=== PATIENT | male | born 1965 | race Caucasian/White ===

== ENCOUNTER 2021-12-05 14:33 | Emergency (ER) | payer BC, SELFPAY ==
--- NOTE | ~2021-12-05 | XR_ITS ---
EXAM: XR abdomen/kub 1V DATE: 12/05/2021 17:24 HISTORY: 6mm L UPJ stone . COMPARISON: None available. FINDINGS: Cholecystectomy clips. Clear lung bases. Multiple loops of dilated small bowel in the righ t lower abdomen. No organomegaly. No abnormal abdominal calcification. Regional bones and soft tissue s normal for age. IMPRESSION: Small bowel obstruction versus ileus. Reviewed, dictated and finalized at location K.
--- NOTE | ~2021-12-05 | CT_ITS ---
EXAMINATION: CT abdomen pelvis wo con DATE: 12/05/2021 16:47 INDICATION: leuko, N/V, L flank/LLQ pain, r/o stone/divertic TECHNIQUE: Computed tomography (CT) of the abdomen and pelvis was performed without intravenous contr ast. Automated exposure control and iterative reconstruction technique were employed. The dose-length product was 1730.07 mGy-cm. COMPARISON: 03/12/2018. FINDINGS: Lower thorax: Unremarkable Liver: Normal. Biliary/Gallbladder: Gallbladder is absent. No bile duct dilation. Pancreas: Mild fatty infiltration and atrophy. Spleen: Normal. Adrenals:No mass. Kidneys: Severe left and moderate right perinephric stranding. Multiple bilateral nonobstructing calc alireza, 6 mm obstructing calculus in the left renal pelvis with mild pelvic caliectasis. GI tract: No small or large bowel dilation. Normal appendix. Mesentery/Peritoneum: No ascites, mass, or free air. Retroperitoneum: No mass. Pelvis: Pelvic organs are within normal limits. Soft Tissues: Subcutaneous induration in the left lower abdomen may represent a cutaneous vascular le kd, injection sites, or scar, otherwise soft tissues and body wall are unremarkable. Bones: No acute osseous finding. IMPRESSION: 6 mm left UPJ stone causing moderate obstructive uropathy. Reviewed, dictated and finalized at location K.
[2021-12-05 14:39] VITALS: BP 162/84; PULSE 97; RESP 16; O2SAT 99
--- NOTE | 2021-12-05 14:51 | ED.MALEGU ---
HPI - Male Genitourinary General Chief complaint: Abdominal Pain Stated complaint: flank pain, vomiting Time Seen by Provider: 12/05/21 14:46 Source: patient Mode of arrival: ambulatory Limitations: no limitations History of Present Illness HPI Narrative: Patient is a 56 y/o male who presents to the ED with c/o left lower back/flank pain, radiating around to his left lower abdomen. Patient reports the pain woke him up from his sleep around 4 AM this morning and has been severe and constant since. No alleviating factors. He tried taking Tylenol around 11 a.m. without relief. He also reports having nausea and vomiting since around 5 AM, and diarrhea today. Denies any blood in vomit or stool. Also reports dysuria today, denies any recent fever, chills, hematuria. Patient does have a history of kidney stone around 20 years ago, which required basket retrieval. Related Data Allergies Allergy/AdvReac Type Severity Reaction Status Date / Time codeine Allergy Unknown Verified 04/07/18 08:20 iodine Allergy Unknown Verified 04/07/18 08:20 Review of Systems Review of Systems: CONSTITUTIONAL: Denies fever, chills, or sweats. GASTROINTESTINAL: Reports L lower ABD pain, N/V/D. Denies constipation, rectal bleeding, hematemesis. GENITOURINARY: Reports dysuria. Denies hematuria. MUSCULOSKELETAL: Reports L lower back/flank pain. All systems reviewed & are unremarkable except as noted in HPI and below PMFSH Past Medical History Medical History Diabetes mellitus History of cholecystitis History of COVID-19 History of kidney stones Hypertension Steatohepatitis, non-alcoholic Surgical History Surgical History (Updated 12/05/21 @ 17:04 by Salina Mills PA-C) History of cholecystectomy Family History Family History (Updated 04/07/18 @ 08:22 by DOCTOR UNKNOWN) Other Asthma Family history of malignant neoplasm Hypertension Social History Social History Smoking status: Never smoker Alcohol intake: current Exam Narrative: GENERAL: Well appearing, obese, non-toxic, in no acute distress. HEAD: Normocephalic, atraumatic. NECK: Supple. No adenopathy, no masses. RESPIRATORY: Airway patent, respirations nonlabored. Clear to auscultation bilaterally, no rales, rhonchi, wheezing. CARDIOVASCULAR: Regular rate and rhythm without murmurs, rubs, or gallops. Peripheral pulses 2+ and equal bilaterally. ABDOMINAL: Soft, diffuse tenderness to palpation, worst in epigastric region, LLQ, L lateral abdomen. Nondistended, no hepatosplenomegaly. Normoactive BS. L sided CVA tenderness to percussion. Pain in L CVA region with percussion of R CVA. MUSCULOSKELETAL: Moves all extremities. Strength/ROM intact without gross deformities. No midline thoracic or lumbar spinal tenderness. SKIN: Warm, dry, normal color. No rashes. NEURO: A&O X3. Speech clear. Cranial nerves II-XII grossly intact. Steady gait. No ataxic movements. PSYCHIATRIC: Appropriate mood and affect. Normal interaction. Course Consultations Consultation #1: Discussed case w/ Dr. Lazcano, Urology, advised if patient's pain can be controlled, he can be discharged home and call office on Tuesday for outpatient f/u. I did try to cancel Toradol until speaking with Dr. Lazcano, however, this was unseen and given to patient. Dr. Lazcano advised patient would have to wait until Tuesday if lithotripsy needed. Date: 12/05/21 Time: 17:40 Vital Signs Vital signs: Vital Signs Pulse Rate 97 12/05/21 14:39 Respiratory Rate 16 12/05/21 14:39 Blood Pressure 162/84 H 12/05/21 14:39 Pulse Oximetry 99 12/05/21 14:39 Temperature 97.8 F 12/05/21 18:03 Pulse Rate 98 12/05/21 19:20 Respiratory Rate 16 12/05/21 19:20 Blood Pressure 142/86 H 12/05/21 19:20 Pulse Oximetry 97 12/05/21 19:20 MDM - Male Genitourinary MDM Narrative Medical decision making
[2021-12-05 15:38] LABS: Appearance Urine Clear (Clear); Bilirubin Urine Negative (Negative); Blood Urine Trace-lysed (Negative); Color Urine Yellow (Yellow); Glucose Urine UA 2+ mg/dL (Negative); Ketones Urine 2+ mg/dL (Negative); Leukocyte Esterase Ur Negative LEU/UL (Negative); Nitrate Urine Negative (Negative); Protein Urine 2+ mg/dL (Negative)
[2021-12-05 15:42] LABS: Mucus Urine Rare /lpf; Squamous Epithelial Cell Urine Rare /hpf (Few); WBC Urine 0-3 /hpf
[2021-12-05 15:43] LABS: Add Urine Microscopic? YES
[2021-12-05] MEDS: MORPHINE SULFATE (*CRX) 4 MG/ML INJ IV PUSH (15:58)
[2021-12-05] MEDS: SODIUM CHLORIDE 0.9% IV 1,000 ML 999 ML IV CONT (15:58)
[2021-12-05] MEDS: ONDANSETRON INJ 4 MG/2 ML VIAL IV PUSH (15:59)
[2021-12-05 16:04] LABS: Basophils Percent Auto 0.2 % (0.2-1.2); Eosinophils Percent Auto 0.1 % (0-4.4); Hematocrit 51.5 % (42.0-52.0); Immature Granulocyte Absolute 0.05 K/mm3 (0.00-0.031); Immature Granulocyte Percent A 0.4 % (0-0.5); Lymphocytes Absolute Auto 0.65 K/mm3 (0.9-3.2); Lymphocytes Percent Auto 5.1 % (18.3-44.2); Mean Corpuscular Hemoglobin 28.7 pg (26-34); Mean Corpuscular Volume 86.8 fl (80-100); Mean Platelet Volume 10.2 fl (7.4-10.4); Monocytes Absolute Auto 0.9 K/mm3 (0.1-0.6); Monocytes Percent Auto 6.6 % (2.6-8.5); Neutrophils Absolute Auto 11.2 K/mm3 (1.3-6.7); Neutrophils Percent Auto 87.6 % (45.5-73.1); Platelet Count Result 217 k/mm3 (150-375); Red Blood Count 5.93 M/mm3 (4.6-6.20); Red Cell Distribution Width 13.2 % (11.5-14.5); White Blood Count 12.8 K/mm3 (4.5-10.0)
[2021-12-05 16:06] LABS: Glucose Point of Care 166 mg/dl (65-105)
[2021-12-05 16:16] LABS: Alanine Aminotransferase 40 U/L (6-50); Albumin Level 4.8 g/dL (3.5-5.1); Alkaline Phosphatase 108 U/L (38-126); Anion Gap 13 mmol/L (8-16); Aspartate Amino Transferase 35 U/L (17-59); Bilirubin,Total 1.1 mg/dL (0.2-1.3); Blood Urea Nitrogen 21 mg/dL (9-20); Calcium 9.6 mg/dL (8.4-10.2); Carbon Dioxide 26 mmol/L (22-30); Chloride 99 mmol/L (98-107); Estimated CRCL calculation 72 ml/min; Estimated Glomerular Filt Rate > 60; Glucose 151 mg/dL (65-110); Lipase 19 U/L (23-300); Potassium 4.4 mmol/L (3.4-5.0); Sodium 138 mmol/L (137-145)
[2021-12-05] MEDS: TAMSULOSIN HCL 0.4 MG CAPSULE PO (17:30)
[2021-12-05] MEDS: KETOROLAC 30 MG/ML VIAL (*BKC) IV PUSH (17:30)
[2021-12-05] MEDS: SODIUM CHLORIDE 0.9% IV 500 ML 999 ML IV CONT (17:30)
[2021-12-05 18:03] VITALS: BP 136/84; PULSE 104; RESP 18; TEMP 36.6; O2SAT 99
[2021-12-05] MEDS: HYDROcodone/acetaminophen (*CRX) 5-325 MG TABLET 1 TAB PO (19:01)
[2021-12-05 19:20] VITALS: BP 142/86; PULSE 98; RESP 16; O2SAT 97
== END 2021-12-05 19:54 | disposition home or self-care (01) ==
PROVIDERS: Physician Assistant; Emergency Provider Emergency Medicine
DX: N13.9 Obstructive and reflux uropathy, unspecified (principal); N20.1 Calculus of ureter; E11.9 Type 2 diabetes mellitus without complications; I10 Essential (primary) hypertension; K75.81 Nonalcoholic steatohepatitis (NASH); Z87.442 Personal history of urinary calculi; Z86.16 Personal history of COVID-19
CPT/HCPCS: 36415; 74018; 74176; 80053; 81001; 82948; 83690; 85025; 87086; 87088; 96361; 96374; 96375; 99284; A9270; J1885; J2270; J2405; J7030; J7040

== ENCOUNTER 2021-12-07 10:00 | Observation (INO) | payer BC, SELFPAY ==
--- NOTE | ~2021-12-07 | CT_ITS ---
EXAMINATION: CT abdomen pelvis wo con DATE: 12/07/2021 13:00 INDICATION: Left flank pain. Kidney stones. TECHNIQUE: Computed tomography (CT) of the abdomen and pelvis was performed without intravenous contr ast. Automated exposure control and iterative reconstruction technique were employed. The dose-length product was 1640.15 mGy-cm. COMPARISON: 12/05/2021 FINDINGS: Minimal discoid atelectasis at the bilateral lower lung zones. Couple large calcified left lower lobe nodules along with multiple hepatic and splenic calcific lesions consistent with old granulomatous d isease. Heart size is normal. Atherosclerotic coronary artery calcific location. No pericardial or pl eural effusion. Cholecystectomy clips the gallbladder fossa. Pancreas and bilateral adrenal glands ar e normal. Bilateral nephrolithiasis with 6 stones in the right kidney the largest measuring 10 x 2 mm the lower pole and 11 stones at the left kidney the largest measuring 5 mm at a lower pole calyx. Th ere is a 5-6 mm stone at the left ureteropelvic junction with additional mild left hydronephrosis. Th ere is mild perirenal stranding along the mid left ureter. Right ureter is normal. Bladder is normal. Prostatomegaly measuring 5.0 x 3.3 cm. Bowels including the appendix are normal. No free intraperito alessandra gas or fluid. No pathologically enlarged abdominal or pelvic lymphadenopathy. Mild lumbar dextro curvature with negligible spondylosis. IMPRESSION: 1. Bilateral nephrolithiasis with at least partially obstructing 5-6 mm stone at the left ureteropelv ic junction with mild left hydronephrosis. Reviewed, dictated and finalized at location A. IMPRESSION: 1. Bilateral nephrolithiasis with at least partially obstructing 5-6 mm stone a t the left ureteropelvic junction with mild left hydronephrosis.
--- NOTE | ~2021-12-07 | XR_ITS ---
EXAMINATION: XR retrograde pyelo w/stent LT DATE: 12/08/2021 12:41 INDICATION: Left ureteral stone TECHNIQUE: 16 fluoroscopic images of the abdomen and pelvis were obtained during procedure performed by Dr. Lazcano. Radiologist was not present for the imaging or procedure. The amount of fluoroscopy time used during this procedure was 1.0 minutes. COMPARISON: None. FINDINGS: Images demonstrate cannulation and retrograde contrast injections into the left renal collecting syst em which demonstrates mild hydronephrosis. Previous noted obstructing stone at the ureteropelvic junc tion is not identified. Final images demonstrate placement of a left intrarenal stent which is in exp ected position with loops formed in the bladder and left renal pelvis. IMPRESSION: 1. Placement of a left internal ureteral stent in expected position. 2. Previously noted obstructing left UPJ stone is not identified and may have been extracted. See pro cedure note for further detail. Reviewed, dictated and finalized at location A. IMPRESSION: 1. Placement of a left internal ureteral stent in expected position. 2. Previously noted obstructing left UPJ stone is not identified and may have b een extracted. See procedure note for further detail.
[2021-12-07 10:08] VITALS: BP 155/78; PULSE 107; RESP 22; TEMP 36.4; O2SAT 100
[2021-12-07 10:37] LABS: Basophils Percent Auto 0.4 % (0.2-1.2); Eosinophils Percent Auto 0.1 % (0-4.4); Hematocrit 50.1 % (42.0-52.0); Immature Granulocyte Absolute 0.04 K/mm3 (0.00-0.031); Immature Granulocyte Percent A 0.4 % (0-0.5); Lymphocytes Absolute Auto 0.87 K/mm3 (0.9-3.2); Lymphocytes Percent Auto 7.8 % (18.3-44.2); Mean Corpuscular HGB Conc 31.9 g/dl (32-36); Mean Corpuscular Hemoglobin 28.8 pg (26-34); Mean Corpuscular Volume 90.1 fl (80-100); Mean Platelet Volume 10.3 fl (7.4-10.4); Monocytes Absolute Auto 1.1 K/mm3 (0.1-0.6); Monocytes Percent Auto 9.6 % (2.6-8.5); Neutrophils Absolute Auto 9.1 K/mm3 (1.3-6.7); Neutrophils Percent Auto 81.7 % (45.5-73.1); Platelet Count Result 162 k/mm3 (150-375); Red Blood Count 5.56 M/mm3 (4.6-6.20); Red Cell Distribution Width 13.3 % (11.5-14.5); White Blood Count 11.1 K/mm3 (4.5-10.0)
[2021-12-07 10:48] LABS: Alanine Aminotransferase 27 U/L (6-50); Albumin Level 4.6 g/dL (3.5-5.1); Alkaline Phosphatase 106 U/L (38-126); Anion Gap 14 mmol/L (8-16); Aspartate Amino Transferase 23 U/L (17-59); Bilirubin,Total 1.3 mg/dL (0.2-1.3); Blood Urea Nitrogen 24 mg/dL (9-20); Calcium 8.8 mg/dL (8.4-10.2); Carbon Dioxide 22 mmol/L (22-30); Chloride 99 mmol/L (98-107); Estimated CRCL calculation 70 ml/min; Estimated Glomerular Filt Rate 42; Glucose 223 mg/dL (65-110); Sodium 135 mmol/L (137-145)
[2021-12-07 12:39] LABS: Add Urine Microscopic? YES; Appearance Urine Clear (Clear); Bilirubin Urine Negative (Negative); Blood Urine Negative (Negative); Color Urine Yellow (Yellow); Glucose Urine UA 3+ mg/dL (Negative); Ketones Urine 2+ mg/dL (Negative); Leukocyte Esterase Ur Negative LEU/UL (Negative); Nitrate Urine Negative (Negative); Protein Urine Negative (Negative); Specific Grav Ur 1.015 (1.001-1.035); Urobilinogen Urine 0.2 mg/dL (<2.0)
[2021-12-07 12:48] LABS: Mucus Urine Rare /lpf; RBC Urine 0-2 /hpf (0-2); Squamous Epithelial Cell Urine Rare /hpf (Few); WBC Urine 0-3 /hpf
--- NOTE | 2021-12-07 12:48 | ED.MALEGU ---
HPI - Male Genitourinary General Chief complaint: Urogenital-Male Stated complaint: left renal stone Time Seen by Provider: 12/07/21 12:48 Source: patient Mode of arrival: ambulatory Limitations: no limitations History of Present Illness HPI Narrative: 56 years old white male presents with severe left flank pain started 3 days ago, was diagnosed of 6 mm stone left ureteropelvic junction at that day. Patient was discharged on Flomax, [place] and Zofran, no improvement. Patient could not sleep all night long, frequent vomiting with intractable pain. History of kidney stone, last 1 was 15 years ago. Does not have urologist. He denies any fever, chills. History of diabetes, hypertension, hyperlipidemia patient on baby aspirin once a day, he does not smoke or uses marijuana, drinks occasionally. Related Data Allergies Allergy/AdvReac Type Severity Reaction Status Date / Time codeine Allergy Unknown Verified 12/07/21 12:02 iodine Allergy Unknown Verified 12/07/21 12:02 Review of Systems Review of Systems: All systems reviewed & are unremarkable except as noted in HPI and below PMFSH Past Medical History Medical History Diabetes mellitus History of cholecystitis History of COVID-19 History of kidney stones Hypertension Steatohepatitis, non-alcoholic Surgical History Surgical History History of cholecystectomy Family History Family History Other Asthma Family history of malignant neoplasm Hypertension Social History Social History Smoking status: Never smoker Alcohol intake: current Exam Narrative: General appearance: Well-developed, well-nourished, in pain Skin: Normal color Chest and respiratory: Airway patent, no respiratory distress, no accessory muscle use Heart: Regular rate/rhythm Abdomen: Soft, severe tenderness left flank, no bruises, no swelling or rash no organomegaly, quiet bowel sounds Vascular: Normal peripheral pulses, normal capillary refill. Neurologic: Alert and oriented ?3, S[place] LIFTER is normal as tested, no gross motor deficit Course Course Emergency Course: Patient is back to our emergency room after 3 days with severe left flank pain, repeated CT scan today showed same 6 mm stone at the left UPJ with left hydronephrosis. Patient failed home medications. Vital Signs Vital signs: Vital Signs Temperature 36.4 C 12/07/21 10:08 Pulse Rate 107 H 12/07/21 10:08 Respiratory Rate 22 H 12/07/21 10:08 Blood Pressure 155/78 H 12/07/21 10:08 Pulse Oximetry 100 12/07/21 10:08 Oxygen Delivery Room Air 12/07/21 10:08 Temperature 36.4 C 12/07/21 10:08 Pulse Rate 107 H 12/07/21 10:08 Respiratory Rate 22 H 12/07/21 10:08 Blood Pressure 155/78 H 12/07/21 10:08 Pulse Oximetry 100 12/07/21 10:08 Oxygen Delivery Room Air 12/07/21 10:08 MDM - Male Genitourinary Lab Data Result diagrams: 12/07/21 10:26 12/07/21 10:26 Labs: Lab Results 12/07/21 12/07/21 12/07/21 Range/Units 10:26 10:26 12:32 WBC 11.1 H (4.5-10.0) K/mm3 RBC 5.56 (4.6-6.20) M/mm3 Hgb 16.0 (14.0-18.0) g/dL Hct 50.1 (42.0-52.0) % MCV 90.1 (80-100) fl MCH 28.8 (26-34) pg MCHC 31.9 L (32-36) g/dl RDW 13.3 (11.5-14.5) % Plt Count 162 (150-375) k/mm3 MPV 10.3 (7.4-10.4) fl Immature Gran % (Auto) 0.4 (0-0.5) % Neut % (Auto) 81.7 H (45.5-73.1) % Lymph % (Auto) 7.8 L (18.3-44.2) % [place] % (Auto) 9.6 H (2.6-8.5)
[2021-12-07] MEDS: SODIUM CHLORIDE 0.9% IV 1,000 ML 999 ML IV CONT (12:52)
[2021-12-07] MEDS: HYDROmorphone HCL INJ (*CRX) 1 MG/ML SYR 0.5 MG IV PUSH ×4 (12:53→22:40)
[2021-12-07] MEDS: ONDANSETRON INJ 4 MG/2 ML VIAL IV PUSH ×3 (12:53→22:30)
--- NOTE | 2021-12-07 16:12 | PM.IMHP ---
H&P: HPI History of Present Illness Date/Time: 12/07/21 16:12 Chief Complaint: abdominal pain Narrative: this is a 56-year-old male patient who has a history of having kidney stones approximately 20 years ago which required basket retrieval.. The patient came to the emergency room with severe left flank pain that started 3 days ago. The patient was seen here in the emergency room on 12/05/2021 When he was diagnosed with a 6 mm left UPJ stone causing moderate obstructive uropathy. The patient was ordered Flomax, Zofran and Vicodin. The patient stated that the Vicodin had been working somewhat but today the medicine was no longer working and he was in excruciating pain. His white count is noted to be 11.1. His creatinine is 1.7 and it had been 1.2 on 12/05/2021. BUN 24. Blood sugar is noted to be 223 on the lab draw. The patient is very nauseated today and did not take any of his medication because he felt that he was not able to keep his medication down. The patient does have left CVA tenderness. Urology has been consulted. The patient had been started on IV fluids and given Dilaudid in the emergency room. He was also given Zofran in the emergency room. When I came in to examine him he was asking for something to eat. Today's abdominal pelvis CT was read as bilateral nephrolithiasis with at least partially obstructing 5-6 mm stone at the left UBJ with mild left hydronephrosis. The patient is being admitted to observation status on the date of service of 12/07/2021. Review of Systems Review of Systems: All systems reviewed & are unremarkable except as noted in HPI and below Constitutional: Constitutional: Reports as per HPI and Reports no additional constitutional complaints Eyes: Eyes: Reports as per HPI and Reports no additional eye complaints ENT: Reports system reviewed and no additional complaints, except as documented and Reports Normal hearing present Cardiovascular: Cardiovascular: Reports no additional cardiovascular complaints Respiratory: Respiratory: Reports no additional respiratory complaints and Reports no additional respiratory complaints Gastrointestinal: Gastrointestinal: Reports as per HPI and Reports no additional gastrointestinal complaints Musculoskeletal: Musculoskeletal: Reports no additional musculoskeletal complaints Integumentary/Breasts: Skin/Breast: Reports system reviewed and no additional complaints, except as docu and Reports as per HPI Neurologic: Reports system reviewed and no additional complaints, except as documented, Reports as per HPI and Reports Normal hearing present Psychiatric: Psychiatric: Reports no additional psychiatric complaints and Reports as per HPI Endocrine: Endocrine: Reports no additional endocrine complaints Hematologic/Lymphatic: Hematologic/Lymphatic: Reports no additional hematologic/lymphatic complaints Allergic/Immunologic: Allergic/Immunologic: Reports no additional allergic/immunologic complaints FOR[facility]LY [facility] Past Medical History Medical History (Updated 12/07/21 @ 17:26 by Fdaia Portillo NP) Diabetes mellitus History of cholecystitis History of COVID-19 History of kidney stones History of nephrolithotomy with removal of calculi Hypertension Steatohepatitis, non-alcoholic Surgical History Surgical History History of cholecystectomy Family History Family History Other Asthma Family history of malignant neoplasm Hypertension Social History Social History (Updated 12/07/21 @ 17:18 by Fadia Portillo NP) Social History: 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 He lives with his and his is the durable power benefits consultant for healthcare. He is a lifelong nonsmoker. He rarely drinks alcohol. He denies any marijuana or illicit drugs. Code status full code Smoking status: Never smoker Alc
[2021-12-07 16:32] LABS: SARS-CoV-2 RNA PCR Negative
--- NOTE | 2021-12-07 18:04 | ADMGEN ---
This patient, Eduardo Jaffe, was admitted to Medical Room 254-01. Patient/family oriented to hospital policies and general routines including ID bracelet, bed and alarms, visiting hours, pain management, procedures, bathroom and other care routines, personal items, smoking policy, room service/diet, and visiting hours. Information on how to activate the Rapid Response Team has been discussed. Patient/Family are encouraged to report perceived risks to care and to ask questions if they do not understand what they are told or what they should do.
[2021-12-07 18:12] VITALS: BP 154/78; PULSE 105; RESP 18; TEMP 36.2; O2SAT 98; BMI 43.2
[2021-12-07 18:21] VITALS: BP 154/78; PULSE 105; RESP 18; TEMP 36.2; O2SAT 98; BMI 43.2
--- NOTE | 2021-12-07 18:26 | WPDURCON ---
Assessment and Plan Assessment and plan (1) Kidney stone on left side: Code(s): N20.0 - Calculus of kidney Status: Acute (2) Hydronephrosis of left kidney: Code(s): N13.30 - Unspecified hydronephrosis Status: Acute Assessment and Plan: Patient to be admitted overnight for hydration analgesics. Will plan cystoscopy with left ureteroscopy, stone extraction, possible laser lithotripsy and stent placement on Tuesday Urology Consult Note HPI Date Seen: 12/07/21 Requesting Physician: Rich Joyner MD Primary Care Provider: PHYSICIAN NOT ON STAFF Consult Narrative Narrative: Eduardo Jaffe is a 56 year old male, previously unknown to our practice, who has been in the emergency room twice in the last 3 days with intractable left flank pain, nausea and vomiting. Imaging on both occasions demonstrates a 6 mm left mid ureteral calculus. He denies fevers chills or gross hematuria. Review of Systems Cardiovascular: Cardiovascular: Denies chest pain, Denies lightheadedness, Denies palpitations and Denies dyspnea Respiratory: Respiratory: Denies dyspnea Gastrointestinal: Gastrointestinal: Denies diarrhea, Denies nausea and Denies vomiting Genitourinary: Genitourinary: Denies hematuria and Denies dysuria Endocrine: Endocrine: Denies palpitations PMFSH Past Medical History Medical History (Updated 12/07/21 @ 17:26 by Fadia Portillo NP) Diabetes mellitus History of cholecystitis History of COVID-19 History of kidney stones History of nephrolithotomy with removal of calculi Hypertension Steatohepatitis, non-alcoholic Surgical History Surgical History History of cholecystectomy Family History Family History Other Asthma Family history of malignant neoplasm Hypertension Social History Social History (Updated 12/07/21 @ 17:18 by Fadia Portillo NP) Social History: 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 He lives with his and his is the durable power commercial real estate attorney for healthcare. He is a lifelong nonsmoker. He rarely drinks alcohol. He denies any marijuana or illicit drugs. Code status full code Smoking status: Never smoker Alcohol intake: current Meds Home Medications and Allergies Home Medications Medication Instructions Recorded Confirmed Type hydrocodone 5 mg-acetaminophen 325 1 tablet PO Q6H PRN pain #20 tabs 12/05/21 12/07/21 Rx mg tablet ondansetron 4 mg disintegrating 4 mg PO Q8H PRN nausea and 12/05/21 12/07/21 Rx tablet vomiting #20 tabs tamsulosin 0.4 mg capsule (Flomax) 0.4 mg PO DAILY #7 caps 12/05/21 12/07/21 Rx Jardiance 12.5 mg PO BID 12/07/21 12/07/21 History amlodipine 5 mg tablet (Norvasc) 5 mg PO DAILY 12/07/21 12/07/21 History bimatoprost 0.01 % eye drops 1 drp EACH EYE HS 12/07/21 12/07/21 History (Gonzaloigan) insulin regular hum U-500 conc 500 200 unit subcut QAM 12/07/21 12/07/21 History unit/mL(3 mL) subcut pen (Humulin R U-500 (Conc) Insulin Kwikpen) losartan 100 mg tablet (Cozaar) 100 mg PO DAILY 12/07/21 12/07/21 History metformin 1,000 mg PO BID 12/07/21 12/07/21 History semaglutide 14 mg tablet (Rybelsus) 14 mg PO DAILY 12/07/21 12/07/21 History simvastatin 40 mg tablet 40 mg PO HS 12/07/21 12/07/21 History Allergies Allergy/AdvReac Type Severity Reaction Status Date / Time iodine Allergy Unknown Eye Verified 12/07/21 18:05 swelling Vital Signs Vital Signs - 24 hr 12/07/21 10:08 12/07/21 18:12 12/07/21 18:21 Temperature 97.6 F 97.2 F L 97.2 F L Pulse Rate 107 H 105 H 105 H Respiratory Rate 22 H 18 18 Blood Pressure 155/78 H 154/78 H 154/78 H Pulse Oximetry 100 98 98 Oxygen Delivery Room Air Exam Const: General: no acute distress Resp: Effort & Inspection: normal respiratory effort GI: Inspection: non-diste
[2021-12-07 18:32] LABS: Glucose Point of Care 106 mg/dl (65-105)
[2021-12-07] MEDS: SODIUM CHLORIDE 0.9% IV 1,000 ML 125 ML IV CONT (18:34)
[2021-12-07 20:00] VITALS: BP 184/82; PULSE 108; RESP 20; TEMP 36.4; O2SAT 96
[2021-12-07] MEDS: LATANOPROST 0.005% OP SOLN 2.5 ML BTL 1 DROP EACH EYE (22:43)
[2021-12-07 23:52] VITALS: BP 168/82; PULSE 113; RESP 20; TEMP 36.3; O2SAT 94
[2021-12-08] VITALS (14 sets, daily range): BP systolic 163–192; BP diastolic 68–96; PULSE 95–112; RESP 15–23; TEMP 36–37.1; O2SAT 92–98
[2021-12-08] MEDS: HYDROmorphone HCL INJ (*CRX) 1 MG/ML SYR 0.5 MG IV PUSH (00:10)
[2021-12-08 00:43] LABS: Glucose Point of Care 244 mg/dl (65-105)
[2021-12-08] MEDS: HYDROmorphone HCL INJ (*CRX) 1 MG/ML SYR IV PUSH ×4 (00:55→18:16)
[2021-12-08] MEDS: SODIUM CHLORIDE 0.9% IV 1,000 ML 125 ML IV CONT ×2 (02:34→16:32)
[2021-12-08 06:00] LABS: Basophils Percent Auto 0.3 % (0.2-1.2); Eosinophils Percent Auto 0.1 % (0-4.4); Hematocrit 46.2 % (42.0-52.0); Immature Granulocyte Absolute 0.07 K/mm3 (0.00-0.031); Immature Granulocyte Percent A 0.7 % (0-0.5); Lymphocytes Absolute Auto 1.03 K/mm3 (0.9-3.2); Lymphocytes Percent Auto 9.7 % (18.3-44.2); Mean Corpuscular HGB Conc 32.5 g/dl (32-36); Mean Corpuscular Hemoglobin 29.1 pg (26-34); Mean Corpuscular Volume 89.5 fl (80-100); Mean Platelet Volume 10.3 fl (7.4-10.4); Monocytes Absolute Auto 1.5 K/mm3 (0.1-0.6); Neutrophils Percent Auto 75.2 % (45.5-73.1); Platelet Count Result 142 k/mm3 (150-375); Red Blood Count 5.16 M/mm3 (4.6-6.20); Red Cell Distribution Width 13.2 % (11.5-14.5); White Blood Count 10.6 K/mm3 (4.5-10.0)
[2021-12-08 06:05] LABS: Lactic Acid Reflex 1.1 mmol/L (0.7-2.0)
[2021-12-08 06:13] LABS: Alanine Aminotransferase 22 U/L (6-50); Albumin Level 4.2 g/dL (3.5-5.1); Alkaline Phosphatase 89 U/L (38-126); Anion Gap 13 mmol/L (8-16); Aspartate Amino Transferase 20 U/L (17-59); Bilirubin,Total 1.2 mg/dL (0.2-1.3); Blood Urea Nitrogen 23 mg/dL (9-20); Calcium 8.4 mg/dL (8.4-10.2); Carbon Dioxide 22 mmol/L (22-30); Chloride 100 mmol/L (98-107); Estimated CRCL calculation 74 ml/min; Estimated Glomerular Filt Rate 45; Glucose 220 mg/dL (65-110); Sodium 135 mmol/L (137-145)
[2021-12-08 07:57] LABS: Hemoglobin A1C 6.5 % (<5.7)
[2021-12-08 08:47] LABS: Glucose Point of Care 216 mg/dl (65-105)
[2021-12-08] MEDS: amLODIPine BESYLATE 5 MG TABLET PO (08:51)
--- NOTE | 2021-12-08 09:11 | WPDHPUPDATE1 ---
History and Physical Update Update Date/Time: 12/08/21 09:11 History and Physical has been reviewed, including an updated exam of the patient. There are NO changes in the patient's condition. Risks, benefits, and alternatives have been discussed and questions answered. Patient agrees to proceed with procedure. Proceed with cystoscopy, left left ureteroscopy with stone extraction, possible laser, stent placement
[2021-12-08] MEDS: fentaNYL CITRATE INJ (*CRX) 100 MCG/2 ML VIAL 50 MCG IV PUSH ×2 (09:55→11:03)
--- NOTE | 2021-12-08 10:02 | WPDANESEPPF ---
Anes - Initial Pre Proc Eval Procedure: Operation Date: 12/08/21 10:30 Proposed Procedures p Cystoscopy, Retrograde Pyelogram, Possible Left Stone Extraction, Left Stent Placement; Possible Holmium Laser(Left) - Manuel Lazcano MD Date/Time: 12/08/21 10:02 Surgeon: STACEY Grover Pre Op Diagnosis: Left UPJ Stone/Left Hydronephrosis Patient Data Age: 56 Gender: M Height: 1.88 m Weight: 153 kg Last Vital Signs Temp 36.0 C L 12/08/21 05:08 Pulse 112 H 12/08/21 05:08 Resp 22 H 12/08/21 05:08 BP 169/86 H 12/08/21 05:08 Pulse Ox 96 12/08/21 05:08 O2 Del Method Room Air 12/08/21 08:00 Allergies Allergy/AdvReac Type Severity Reaction Status Date / Time iodine Allergy Unknown Eye Verified 12/08/21 09:41 swelling Home Medications Medication Instructions Recorded Confirmed Type hydrocodone 5 mg-acetaminophen 325 1 tablet PO Q6H PRN pain #20 tabs 12/05/21 12/07/21 Rx mg tablet ondansetron 4 mg disintegrating 4 mg PO Q8H PRN nausea and 12/05/21 12/07/21 Rx tablet vomiting #20 tabs tamsulosin 0.4 mg capsule (Flomax) 0.4 mg PO DAILY #7 caps 12/05/21 12/07/21 Rx Jardiance 12.5 mg PO BID 12/07/21 12/07/21 History amlodipine 5 mg tablet (Norvasc) 5 mg PO DAILY 12/07/21 12/07/21 History bimatoprost 0.01 % eye drops 1 drp EACH EYE HS 12/07/21 12/07/21 History (Lumigan) insulin regular hum U-500 conc 500 200 unit subcut QAM 12/07/21 12/07/21 History unit/mL(3 mL) subcut pen (Humulin R U-500 (Conc) Insulin Kwikpen) losartan 100 mg tablet (Cozaar) 100 mg PO DAILY 12/07/21 12/07/21 History metformin 1,000 mg PO BID 12/07/21 12/07/21 History semaglutide 14 mg tablet (Rybelsus) 14 mg PO DAILY 12/07/21 12/07/21 History simvastatin 40 mg tablet 40 mg PO HS 12/07/21 12/07/21 History Laboratory Tests 12/07/21 12/07/21 12/07/21 10:26 10:26 12:32 WBC 11.1 K/mm3 H K/mm3 (4.5-10.0) RBC 5.56 M/mm3 M/mm3 (4.6-6.20) Hgb 16.0 g/dL g/dL (14.0-18.0) Hct 50.1 % % (42.0-52.0) MCV 90.1 fl fl (80-100) MCH 28.8 pg pg (26-34) MCHC 31.9 g/dl L g/dl (32-36) RDW 13.3 % % (11.5-14.5) Plt Count 162 k/mm3 k/mm3 (150-375) MPV 10.3 fl fl (7.4-10.4) Immature Gran % (Auto) 0.4 % % (0-0.5) Neut % (Auto) 81.7 % H % (45.5-73.1) Lymph % (Auto) 7.8 % L % (18.3-44.2) [place] % (Auto) 9.6 % H % (2.6-8.5) Eos % (Auto) 0.1 % % (0-4.4) Baso % (Auto) 0.4 % % (0.2-1.2) Lymph # (Auto) 0.87 K/mm3 L K/mm3 (0.9-3.2) [place] # (Auto) 1.1 K/mm3 H K/mm3 (0.1-0.6) Eos # (Auto) 0.0 K/mm3 K/mm3 (0-0.3) Baso # (Auto) 0.0 K/mm3 K/mm3 (0.0-0.1) Abs Immat Gran (auto) 0.04 K/mm3 H K/mm3 (0.00-0.031) Absolute Neuts (auto) 9.1 K/mm3 H K/mm3 (1.3-6.7) Absolute Nucleated RBC 0.0 K/mm3 K/mm3 (0.0-0.012) Nucleated RBC % 0.0 % % (0.0-0.2) Sodium 135 mmol/L L mmol/L (137-145) Potassium 5.0 mmol/L mmol/L (3.4-5.0) Chloride 99 mmol/L mmol/L (98-107) Carbon Dioxide 22 mmol/L mmol/L (22-30) Anion Gap 14 mmol/L mmol/L (8-16) BUN 24 mg/dL H mg/dL (9-20) Creatinine 1.70 mg/dL H mg/dL (0.7-1.3) Estim Creat Clear Calc 70 ml/min ml/min Estimated GFR 42 L (59 - ) Glucose 223 mg/dL H mg/dL (65-110) POC Capillary Glucose Hemoglobin A1c Lactic Acid Calcium 8.8 mg/dL mg/dL (8.4-10.2) Magnesium Total Bilirubin 1.3 mg/dL mg/dL (0.2-1.3) AST 23 U/L U/L (17-59) ALT 27 U/L U/L (6-50) Alkaline Phosphatase 106 U/L U/L (38-126) Total Protein 8.0 g/dL g/dL (6.3-8.2) Albumin 4.6 g/dL g/dL (3.5-5.1) TSH (Reflex) U
--- NOTE | 2021-12-08 10:28 | PHAR ---
HOME MEDICATION VERIFIED BY PHARMACY HUMULIN R U-500 INSULIN PEN
[2021-12-08] MEDS: LACTATED RINGERS 1,000 ML 30 ML IV CONT ×2 (11:03→13:07)
--- NOTE | 2021-12-08 12:40 | P.OP_ITS ---
Procedure Note - Detailed Date of Procedure 12/08/21 Pre-op Diagnosis Left UPJ Stone/Left Hydronephrosis-left renal calculi multiple Post-op Diagnosis Same Procedure Performed Cystoscopy, left retrograde pyelogram, left ureteroscopy with holmium laser/dusting of renal calculi and UPJ stone left ureteral stent placement 4.8 Grenadian contour Surgeon Manuel Lazcano MD Anesthesia General Findings Multiple renal calculi as well as a left UPJ stone. 2. Extremely high median bar with inability to pass a rigid cystoscope Description of Procedure Patient is taken to the operative suite correctly identified. Once anesthesia was obtained was placed in dorsal lithotomy position and prepped and draped usual sterile fashion. Twenty-two Grenadian scope was inserted into the urethra. There was some mild bulbar urethral narrowing but allowed passage of the scope. Patient has a very elevated median bar/ridge to get into the prostate. We torqued the scope as much as possible but could still not manipulated over this bladder neck area. At this point we obtained a flexible cystoscope. The bladder was then inspected no tumors noted. The left ureteral orifice was cannulated with a guidewire. A ureteral access sheath was then placed. Mini flexible ureteral scope was inserted. The stone in the UPJ area was visualized. He also had some proximal ureteral tightness. We decided to simply try and fragment and dust the stones into small fragments for him to pass. Using a 273 micron fiber we dusted as many of the stones as we could see. These included the UPJ stone, lower pole calculi as well as some upper pole stones. We then did a pyelogram to confirm placement of the stent. 4.8 Grenadian contour stent was then placed with the proximal end coiled in the renal pelvis and the distal in the bladder. 2% viscous lidocaine was inserted into the urethra patient is taken recovery stable condition. I am going to recommend a CT scan in 7-10 days to see what remains prior to any stent removal. Urine Output 1,200 Drains Yes Packing No Pathology None sent Complications No immediate complications Condition Stable Disposition PACU
[2021-12-08 13:17] LABS: Glucose Point of Care 225 mg/dl (65-105)
[2021-12-08] MEDS: fentaNYL CITRATE INJ (*CRX) 100 MCG/2 ML VIAL 25 MCG IV PUSH ×8 (13:35→14:30)
[2021-12-08 15:22] LABS: Glucose Point of Care 250 mg/dl (65-105)
[2021-12-08] MEDS: INSULIN ASPART (*BKC) 100 UNITS/ML SUB-Q ×2 (15:25→16:47)
--- NOTE | 2021-12-08 15:56 | PM.IMPN ---
Progress Note: A&P Assessment and Plan (1) Kidney stone on left side: Code(s): N20.0 - Calculus of kidney Status: Acute Assessment and Plan: - OR intervention today was performed for bilateral nephrolithiasis with at least partially obstructing 5-6 mm stone on the left UVJ with mild left hydronephrosis. - continue IV fluids - continue with analgesics - continue with antiemetics (2) Acute kidney failure: Code(s): N17.9 - Acute kidney failure, unspecified Status: Acute Assessment and Plan: - Suspicious that the etiology is secondary to the obstructing Nephrolithasis that the pt. had. - Continue IVF - Follow and trend labs. (3) Hydronephrosis of left kidney: Code(s): N13.30 - Unspecified hydronephrosis Status: Acute Assessment and Plan: - See above POC. (4) Hypertension: Code(s): I10 - Essential (primary) hypertension Status: Acute Assessment and Plan: - continue with home medication if patient is not nauseated - p.r.n. hydralazine with parameters (5) Diabetes mellitus: Code(s): E11.9 - Type 2 diabetes mellitus without complications Status: Acute Assessment and Plan: - Accu-Cheks AC and HS with sliding scale insulin check A1c if 1 has not been completed in the last 3 months - continue with home medication - Initiate Hypoglycemia protocol. Time Spent With Patient Time with patient: 15 - 25 minutes Subjective Date/time seen: 12/08/21 15:30 This pt. was evaluated at the bedside today after OR intervention with Dr. Lazcano. The pt tells me of him developing low back pain on Tuesday, now three days ago, that has only worsened over the past few days. He was found to have Bilateral nephrolithiasis yesterday on CT scan and there was a stone on the left at the UPJ that is partially obstructing and is 5-6 mm. He went for a Cystoscopy today with left retrograde pyelogram, left ureteroscopy with laser/dusting of renal calculi and UPJ stone with stent placement. Upon return from OR he has continued pain in his back, and is urinating without difficulty. Per the operative note of Dr. Lazcano, he is going to recommend a CT scan in 7-10 days to see what remains prior to any stent removal. At the time of my exam, he has no c/o CP, Dyspnea, N/V/D. He does have flank pain on the left side but no further nausea/vomiting. Review of Systems Review of Systems: All systems reviewed & are unremarkable except as noted in HPI and below Exam Const: General: uncomfortable Other: Morbidly obese male patient. HENMT: General nose exam: Normal nares present and no epistaxis Mouth: Yes moist mucous membranes Eyes: General: appearance normal, both eyes and all related structures Sclera: sclerae normal Pupils: Equal, round and reactive pupils present EOM: EOMs intact bilaterally Neck: Neck: supple and no JVD Resp: Effort & Inspection: normal respiratory effort Auscultation: clear to auscultation bilaterally Cardio: Rate: regular rate Rhythm: regular rhythm Heart sounds: no gallops, no murmurs and no rubs GI: Inspection: non-distended GI Palp: Yes Soft to palpation and Yes Tenderness to palpation present (GI) (Left flank) Auscultation: normal bowel sounds : Other: Voiding freely. Skin: General skin exam: normal color and no rashes or lesions noted Wounds: no wounds Neuro: General: gait normal Speech: normal speech Motor exam (neuro): 5/5 motor strength present throughout and Normal motor muscle tone present throughout Sensory Exam: normal sensation Extrem: General: normal to inspection, no edema and no pedal edema Other: Pt. freely and equally MAEW. Psych: Mental Status: mental status grossly normal Affect: normal affect Objective Data Vital Signs Vital Signs: Vital Signs - 24 hr 12/07/21 18:40 12/07/21 18:12 12/07/21 20:00 Temperature 97.2 F L 97.5 F L Pulse Rate 105 H 108 H Respiratory Rate 18 20 Blood Pres
[2021-12-08 16:38] LABS: Glucose Point of Care 241 mg/dl (65-105)
[2021-12-08] MEDS: LATANOPROST 0.005% OP SOLN 2.5 ML BTL 1 DROP EACH EYE (22:03)
[2021-12-08] MEDS: SIMVASTATIN 20 MG TABLET 40 MG PO (22:03)
[2021-12-08] MEDS: HYDROcodone/acetaminophen (*CRX) 5-325 MG TABLET 1 TAB PO (22:07)
[2021-12-08 22:14] LABS: Glucose Point of Care 257 mg/dl (65-105)
[2021-12-09] MEDS: SODIUM CHLORIDE 0.9% IV 1,000 ML 125 ML IV CONT (00:25)
[2021-12-09 05:37] LABS: Basophils Percent Auto 0.4 % (0.2-1.2); Eosinophils Absolute Auto 0.1 K/mm3 (0-0.3); Eosinophils Percent Auto 0.6 % (0-4.4); Hematocrit 45.1 % (42.0-52.0); Hemoglobin 14.7 g/dL (14.0-18.0); Immature Granulocyte Absolute 0.06 K/mm3 (0.00-0.031); Immature Granulocyte Percent A 0.7 % (0-0.5); Lymphocytes Absolute Auto 1.15 K/mm3 (0.9-3.2); Lymphocytes Percent Auto 13.5 % (18.3-44.2); Mean Corpuscular HGB Conc 32.6 g/dl (32-36); Mean Corpuscular Hemoglobin 29.2 pg (26-34); Mean Corpuscular Volume 89.7 fl (80-100); Mean Platelet Volume 10.6 fl (7.4-10.4); Monocytes Absolute Auto 1.2 K/mm3 (0.1-0.6); Monocytes Percent Auto 14.1 % (2.6-8.5); Neutrophils Percent Auto 70.7 % (45.5-73.1); Platelet Count Result 142 k/mm3 (150-375); Red Blood Count 5.03 M/mm3 (4.6-6.20); Red Cell Distribution Width 13.2 % (11.5-14.5); White Blood Count 8.5 K/mm3 (4.5-10.0)
[2021-12-09] MEDS: HYDROcodone/acetaminophen (*CRX) 5-325 MG TABLET 1 TAB PO (05:53)
[2021-12-09 06:07] LABS: Alanine Aminotransferase 20 U/L (6-50); Alkaline Phosphatase 91 U/L (38-126); Anion Gap 13 mmol/L (8-16); Aspartate Amino Transferase 18 U/L (17-59); Blood Urea Nitrogen 22 mg/dL (9-20); Calcium 8.6 mg/dL (8.4-10.2); Carbon Dioxide 23 mmol/L (22-30); Chloride 101 mmol/L (98-107); Estimated CRCL calculation 115 ml/min; Estimated Glomerular Filt Rate > 60; Glucose 193 mg/dL (65-110); Magnesium 2.1 mg/dL (1.6-2.3); Potassium 4.7 mmol/L (3.4-5.0); Sodium 137 mmol/L (137-145)
[2021-12-09 07:46] LABS: Glucose Point of Care 189 mg/dl (65-105)
[2021-12-09 08:10] VITALS: BP 158/82
[2021-12-09] MEDS: TAMSULOSIN HCL 0.4 MG CAPSULE PO (08:25)
[2021-12-09] MEDS: amLODIPine BESYLATE 5 MG TABLET PO (08:25)
--- NOTE | 2021-12-09 10:53 | PM.DS ---
DS: Admitting Diagnosis Discharge Date 12/09/2021 Admitting Diagnosis Left ureterolithiasis, acute kidney failure, hydronephrosis, HTN, DM DS: Discharge Diagnosis Discharge Diagnosis (1) Kidney stone on left side: Code(s): N20.0 - Calculus of kidney Status: Acute Assessment and Plan: - OR intervention today was performed for bilateral nephrolithiasis with at least partially obstructing 5-6 mm stone on the left UVJ with mild left hydronephrosis. - Pt. has improved with his pain and has good control. He is stable and would like to be discharged home. I spoke with Dr. Lazcano who was agreeable to the plan of discharge and an order for Cipro 500 mg b.i.d. 3 days is ordered in Dr. Lazcano office will call patient to set up CT scan within 1 week. (2) Acute kidney failure: Code(s): N17.9 - Acute kidney failure, unspecified Status: Resolved Assessment and Plan: - Resolved (3) Hydronephrosis of left kidney: Code(s): N13.30 - Unspecified hydronephrosis Status: Resolved Assessment and Plan: - resolved (4) Hypertension: Code(s): I10 - Essential (primary) hypertension Status: Chronic Assessment and Plan: - continue with home medication if patient is not nauseated - p.r.n. hydralazine with parameters (5) Diabetes mellitus: Code(s): E11.9 - Type 2 diabetes mellitus without complications Status: Chronic Assessment and Plan: - continue home diabetic regimen DS: Summary Hospital Course Reason for hospitalization: Abdominal Pain Hospital Course: this very pleasant 56-year-old male patient with significant past medical history of diabetes mellitus type 2, cholecystitis, nephrolithiasis, nephrolithotomy with removal of calculi, hypertension and NAFLD presented to the emergency room on 12/07/2021 with complaints of having worsening of abdominal pain from his kidney stone that was diagnosed 2 days prior and this time accompanied by acute nausea and vomiting. Workup was started in the emergency room and was found that patient had acute kidney injury that was suspicion to be secondary to his presenting complaint of Ureterolithiasis with obstruction. He was admitted to the hospital and Urology was consulted. Yesterday Dr. Lazcano took the patient to the operating room and performed a cystoscopy with a left retrograde pyelogram and a left ureteroscopy with laser and dusting of the renal calculi and UPJ stone left ureteral stent placement. Patient has had a favorable course post OR intervention. This morning he is without pain or distress, he is up moving around the room without any difficulty or complaint and is ready for discharge. After consulting with Dr. Lazcano patient is prescribed a 3 day course of Cipro 500 mg q.12 hours, ( Bactrim unable to be prescribed based on patient's ACEI/ARB use as well as allergy of periorbital edema with iodine.) Dr. Lazcano office will reach out to patient to schedule a CT scan in approximately 1 week. Patient is agreeable to this plan of care and he is advised to return to the emergency room immediately should he have any new or worsening symptoms. Status at Discharge Functional status at discharge: independent ambulation Overall status at discharge: patient is back to baseline Time Spent with Patient Time attestation: Total time spent providing and/or coordinating discharge services: Time spent: Greater than 30 minutes Specific discharge activities: Plan of care, discharge instructions Exam Const: General: comfortable Other: morbid obesity HENMT: Mouth: Yes moist mucous membranes Eyes: Sclera: sclerae normal Pupils: Equal, round and reactive pupils present EOM: EOMs intact bilaterally Neck: Neck: supple and no JVD Lymphatic: lymphadenopathy not noted Resp: Effort & Inspection: normal respiratory effort Auscultation: clear to auscultation bilaterally Cardio: Rate: regular rate Rhythm: re
--- NOTE | 2021-12-09 12:50 | WPDANESPN ---
Anes - Prog Note Post-Op Date/Time: 12/09/21 12:50 Cardiovascular status: normal Respiratory status: normal Airway patency: baseline Mental status: baseline Post-Op hydration status: normal Vital Signs: Last Vital Signs Temp 98.7 F 12/08/21 23:53 Pulse 112 H 12/08/21 23:53 Resp 20 12/08/21 23:53 BP 158/82 H 12/09/21 08:10 Pulse Ox 94 12/08/21 23:53 O2 Del Method Room Air 12/09/21 08:15 O2 Flow Rate 2 12/08/21 14:45 Pain Score (VAS): 05/18 I/O: Intake & Output 12/08/21 12/09/21 12/09/21 23:59 07:59 15:59 Intake Total 751 1000 240 Output Total 1000 1800 Balance -249 -800 240 Laboratory Tests 12/09/21 04:59 12/09/21 04:59 12/08/21 12/08/21 12/08/21 13:14 15:20 16:34 WBC RBC Hgb Hct MCV MCH MCHC RDW Plt Count MPV Immature Gran % (Auto) Neut % (Auto) Lymph % (Auto) [place] % (Auto) Eos % (Auto) Baso % (Auto) Lymph # (Auto) [place] # (Auto) Eos # (Auto) Baso # (Auto) Abs Immat Gran (auto) Absolute Neuts (auto) Absolute Nucleated RBC Nucleated RBC % Sodium Potassium Chloride Carbon Dioxide Anion Gap BUN Creatinine Estim Creat Clear Calc Estimated GFR Glucose POC Capillary Glucose 225 H 250 H 241 H Calcium Magnesium Total Bilirubin AST ALT Alkaline Phosphatase Total Protein Albumin 12/08/21 12/09/21 12/09/21 22:01 04:59 04:59 WBC 8.5 RBC 5.03 Hgb 14.7 Hct 45.1 MCV 89.7 MCH 29.2 MCHC 32.6 RDW 13.2 Plt Count 142 L MPV 10.6 H Immature Gran % (Auto) 0.7 H Neut % (Auto) 70.7 Lymph % (Auto) 13.5 L [place] % (Auto) 14.1 H Eos % (Auto) 0.6 Baso % (Auto) 0.4 Lymph # (Auto) 1.15 [place] # (Auto) 1.2 H Eos # (Auto) 0.1 Baso # (Auto) 0.0 Abs Immat Gran (auto) 0.06 H Absolute Neuts (auto) 6.0 Absolute Nucleated RBC 0.0 Nucleated RBC % 0.0 Sodium 137 Potassium 4.7 Chloride 101 Carbon Dioxide 23 Anion Gap 13 BUN 22 H Creatinine 1.00 Estim Creat Clear Calc 115 Estimated GFR > 60 Glucose 193 H POC Capillary Glucose 257 H Calcium 8.6 Magnesium 2.1 Total Bilirubin 1.0 AST 18 ALT 20 Alkaline Phosphatase 91 Total Protein 7.0 Albumin 4.0 12/09/21 07:41 WBC RBC Hgb Hct MCV MCH MCHC RDW Plt Count MPV Immature Gran % (Auto) Neut % (Auto) Lymph % (Auto) [place] % (Auto) Eos % (Auto) Baso % (Auto) Lymph # (Auto) [place] # (Auto) Eos # (Auto) Baso # (Auto) Abs Immat Gran (auto) Absolute Neuts (auto) Absolute Nucleated RBC Nucleated RBC % Sodium Potassium Chloride Carbon Dioxide Anion Gap BUN Creatinine Estim Creat Clear Calc Estimated GFR Glucose POC Capillary Glucose 189 H Calcium Magnesium Total Bilirubin AST ALT Alkaline Phosphatase Total Protein Albumin Post-procedural complaints: none Patient Feedback: Patient satisfied with anesthetic care.
== END 2021-12-09 12:28 | disposition home or self-care (01) ==
LOC: ANHED 13:00 → ANH2MED 17:11
PROVIDERS: Emergency Medicine; Nurse Practitioner; Urology; Admitting Provider Internal Medicine; Emergency Provider Emergency Medicine; Visit Provider Nurse Practitioner Adult Health
PROC: (CPT 52352; principal; 2021-12-08 10:30)
DX: N13.2 Hydronephrosis with renal and ureteral calculous obstruction (principal); N17.9 Acute kidney failure, unspecified; I10 Essential (primary) hypertension; E11.9 Type 2 diabetes mellitus without complications; K76.0 Fatty (change of) liver, not elsewhere classified; Z90.49 Acquired absence of other specified parts of digestive tract; Z79.891 Long term (current) use of opiate analgesic; Z79.84 Long term (current) use of oral hypoglycemic drugs; Z79.4 Long term (current) use of insulin; Z79.899 Other long term (current) drug therapy; Z86.16 Personal history of COVID-19; Z20.822 Contact with and (suspected) exposure to COVID-19; E66.01 Morbid (severe) obesity due to excess calories; Z68.41 Body mass index [BMI] 40.0-44.9, adult
CPT/HCPCS: 52356; 36415; 74176; 74420; 80053; 81001; 82948; 83036; 83605; 83735; 84443; 85025; 87086; 96361; 96374; 96375; 96376; 99285; A9270; C1769; C1894; C2617; C9803; G0378; J1100; J1170; J1200; J1815; J2250; J2405; J2704; J3010; J7030; J7120; U0003; U0005

== ENCOUNTER 2021-12-18 15:22 | Inpatient (IN) | payer BC, SELFPAY ==
[2021-12-18] VITALS (10 sets, daily range): BP systolic 117–140; BP diastolic 57–81; PULSE 85–121; RESP 16–27; TEMP 36.5–37.9; O2SAT 92–96; BMI 42.3
--- NOTE | ~2021-12-18 | CT_ITS ---
EXAMINATION: CT abdomen pelvis wo con DATE: 12/22/2021 10:42 INDICATION: Right ureterovesicular junction stone TECHNIQUE: Computed tomography (CT) of the abdomen and pelvis was performed without intravenous contr ast. The dose-length product (DLP) was 1609.13 mGy-cm. Automated exposure control and iterative recon struction technique were employed. COMPARISON: 12/18/2021 FINDINGS: Minimal dependent atelectasis is present in the lung bases. The heart size is normal. Calci fied atherosclerosis is noted. There is nodularity of the liver surface, consistent with cirrhosis. P unctate calcifications of the liver and spleen are consistent with old granulomatous disease. The gal lbladder is surgically absent. The pancreas and adrenal glands are normal. A left internal ureteral s tent is in expected position. There are nonobstructing stones of the kidneys measuring up to 3 mm on the right and 9 mm on the left. The previously described right ureterovesicular junction stone is now seen in the dependent portion of the urinary bladder. There is mild retroperitoneal fat stranding wh ich may reflect urinary tract infection. No pathologically enlarged abdominal or pelvic lymph nodes a re identified. There is no free intraperitoneal gas or evidence of bowel obstruction. The appendix is normal. There is mild lumbar spondylosis. IMPRESSION: 1. 3 mm stone in the dependent portion of the urinary bladder, displaced from the ureterovesicular ju nction since the comparison CT. 2. Bilateral nonobstructing nephrolithiasis. Reviewed, dictated and finalized at location A. IMPRESSION: 1. 3 mm stone in the dependent portion of the urinary bladder, displaced from t he ureterovesicular junction since the comparison CT. 2. Bilateral nonobstructing nephrolithiasis.
--- NOTE | ~2021-12-18 | US_ITS ---
US abdomen limited INDICATION: Abnormal liver function tests. PROCEDURE: Realtime right upper abdominal ultrasound. COMPARISON: No prior studies for comparison. FINDINGS: The pancreas is normal without focal mass or pancreatic ductal dilation. Liver echotexture is heterogeneous. There is nodularity of the liver surface, consistent with cirrhosis. There is nor mal directional flow in the portal vein. Gallbladder is surgically absent. Common bile duct measures 6 mm. No sonographic Rivero's sign. IMPRESSION: 1: Cirrhosis of the liver. Reviewed, dictated and finalized at location B. IMPRESSION: 1: Cirrhosis of the liver.
--- NOTE | ~2021-12-18 | CT_ITS ---
EXAMINATION: CT abdomen pelvis wo con DATE: 12/18/2021 16:20 INDICATION: Flank pain TECHNIQUE: Computed tomography (CT) of the abdomen and pelvis was performed without intravenous contr ast. The dose-length product was 1369.32 mGy-cm. Automated exposure control and iterative reconstruct ion technique were employed. COMPARISON: CT dated 12/07/2021. FINDINGS: Lung bases are unremarkable. Heart size normal. There are calcified granulomas in the lungs , liver and spleen. The pancreas and adrenal glands are unremarkable. There are multiple bilateral nonobstructing renal s tones. There is a left internal ureteral stent. There is moderate left perinephric stranding and jerome ureteral edema. Cannot exclude ascending urinary tract infection. There is a small 3 mm stone at the right UVJ which may represent recently passed bladder stone or UVJ stone. Mild right hydronephrosis. There are accessory splenules. No free air or free fluid. There are cholecystectomy clips. Nonobstructive bowel gas pattern. There is subcutaneous stranding of the left anterior abdominal wall, nonspecific. There is osteoarthritis of the hips. No acute osseous abnormality. IMPRESSION: 1. Moderate left perinephric and periureteral edema. Cannot exclude ascending urinary tract infection . Left internal ureteral stent in expected position. 2: Calcification at the right UVJ measuring 3 mm which may represent a recently passed stone or UVJ s tone. 3: Nonobstructing bilateral nephrolithiasis. Reviewed, dictated and finalized at location A. IMPRESSION: 1. Moderate left perinephric and periureteral edema. Cannot exclude ascending u rinary tract infection. Left internal ureteral stent in expected position. 2: Calcification at the right UVJ measuring 3 mm which may represent a recently passed stone or UVJ stone. 3: Nonobstructing bilateral nephrolithiasis.
--- NOTE | ~2021-12-18 | US_ITS ---
EXAMINATION: US renal BI DATE: 12/19/2021 08:08 INDICATION: Urinary retention, acute kidney injury TECHNIQUE: Multiple grayscale and Doppler ultrasound images of the kidneys were obtained. COMPARISON: CT from yesterday FINDINGS: The right kidney measures 13.8 x 7.2 x 7.2 cm. The left kidney measures 14.9 x 5.4 x 7.7 cm . The kidneys demonstrate normal parenchymal echogenicity. A 5 mm stone is noted in the lower pole of the right kidney. Stones of the left kidney measure up to 11 mm. There is no hydronephrosis. The braeden dder is normal. IMPRESSION: 1. Bilateral nephrolithiasis without hydronephrosis. Reviewed, dictated and finalized at location A.
--- NOTE | 2021-12-18 15:32 | ED.MALEGU ---
HPI - Male Genitourinary General Chief complaint: Urogenital-Male Stated complaint: L FLANK AFTER KIDNEY STONES/STENTED AND BLASTED Time Seen by Provider: 12/18/21 15:29 History of Present Illness HPI Narrative: This is a 56-year-old male with history of nephrolithiasis, status post lithotripsy last week, who returns emergency department complaining of severe abdominal pain nausea and vomiting. He states his pain began yesterday, is described as sharp, in the left flank, radiating to the pelvis, similar to pain with previous stones. He also notes chills, with vomiting without blood. He denies recent trauma, complains of persistent burning with urination but denies bleeding. He states he finished pain medications and Flomax previously prescribed. Related Data Home Medications Medication Instructions Recorded Confirmed Jardiance 12.5 mg PO BID 12/07/21 12/07/21 amlodipine 5 mg tablet (Norvasc) 5 mg PO DAILY 12/07/21 12/07/21 bimatoprost 0.01 % eye drops 1 drp EACH EYE HS 12/07/21 12/07/21 (Lumigan) insulin regular hum U-500 conc 500 200 unit subcut QAM 12/07/21 12/07/21 unit/mL(3 mL) subcut pen (Humulin R U-500 (Conc) Insulin Kwikpen) losartan 100 mg tablet (Cozaar) 100 mg PO DAILY 12/07/21 12/07/21 metformin 1,000 mg PO BID 12/07/21 12/07/21 semaglutide 14 mg tablet (Rybelsus) 14 mg PO DAILY 12/07/21 12/07/21 simvastatin 40 mg tablet 40 mg PO HS 12/07/21 12/07/21 Allergies Allergy/AdvReac Type Severity Reaction Status Date / Time iodine Allergy Unknown Eye Verified 12/18/21 15:28 swelling Review of Systems Review of Systems: CONSTITUTIONAL: +fever, chills, Denies sweats. EYES: Denies visual changes, redness, or discharge. ENT: Denies rhinorrhea, congestion, sore throat, or otalgia. CARDIOVASCULAR: Denies chest pain, palpitations, or edema. RESPIRATORY: Denies cough or dyspnea. GASTROINTESTINAL: +abdominal pain, nausea, vomiting Denies diarrhea. GENITOURINARY: dysuria Denies hematuria. SKIN: Denies rash or itching. MUSCULOSKELETAL: Denies back pain, joint pain, or myalgia. NEUROLOGIC: Denies headache, numbness, dizziness, or weakness. PSYCHIATRIC: Denies anxiety or depression. [facility] Past Medical History Medical History (Updated 12/18/21 @ 17:24 by Susy Milligan PA-C) Hypertension Kidney stones Steatohepatitis, non-alcoholic Type 2 diabetes mellitus Surgical History Surgical History (Updated 12/18/21 @ 17:24 by Susy Milligan PA-C) History of cholecystectomy History of nephrolithotomy with removal of calculi Family History Family History Other Asthma Family history of malignant neoplasm Hypertension Social History Social History (Updated 12/18/21 @ 17:26 by Susy Milligan PA-C) Social History: Surrogate medical decision maker: Gloria Chavezshellyricardo, spouse. Code status: Full code. Smoking status: Never smoker Alcohol intake: never Substance use: never Substance use type: does not use Additional living arrangements comments: Lives with in [place]. Additional occupation/education comments: [employer]. Spiritual care concerns: No Exam Narrative: GENERAL: Well-nourished, in moderate distress due to pain HEAD: Normocephalic, atraumatic. EYES: PERRLA and EOMI. ENT: Nares clear, no rhinorrhea or epistaxis. Mucous membranes moist. Oropharynx without tonsillar hypertrophy exudate or other lesions. NECK: Supple. No adenopathy or masses. No carotid bruits or JVD CHEST: Clear to auscultation. No respiratory distress. No wheezes rales or rhonchi HEART: Tachycardic with regular rhythm. No murmur heard. Normal peripheral pulses. ABDOMEN: Soft, mildly distended, diffusely tender to palpation, greatest in the left upper quadrant and left flank pain, active bowel sounds. EXTREMITIES: Normal range of motion. No edema. SKIN: Warm, dry, no rash. NEURO: No focal deficits. Alert and oriented x3. PSYCH
[2021-12-18] MEDS: MORPHINE SULFATE (*CRX) 4 MG/ML INJ 6 MG IV PUSH (16:01)
[2021-12-18] MEDS: SODIUM CHLORIDE 0.9% IV 1,000 ML 999 ML IV CONT ×2 (16:01→21:56)
[2021-12-18 16:31] LABS: Alanine Aminotransferase 59 U/L (6-50); Albumin Level 4.3 g/dL (3.5-5.1); Alkaline Phosphatase 144 U/L (38-126); Anion Gap 13 mmol/L (8-16); Aspartate Amino Transferase 73 U/L (17-59); Bilirubin,Total 1.2 mg/dL (0.2-1.3); Blood Urea Nitrogen 29 mg/dL (9-20); Calcium 9.5 mg/dL (8.4-10.2); Carbon Dioxide 22 mmol/L (22-30); Chloride 96 mmol/L (98-107); Estimated CRCL calculation 81 ml/min; Estimated Glomerular Filt Rate 53; Glucose 294 mg/dL (65-110); Lipase 27 U/L (23-300); Potassium 4.2 mmol/L (3.4-5.0); Sodium 131 mmol/L (137-145)
[2021-12-18] MEDS: PROCHLORPERAZINE EDISYLATE 10 MG/2 ML VIAL IV PUSH (16:35)
[2021-12-18 16:55] LABS: Basophils Absolute Auto 0.1 K/mm3 (0.0-0.1); Basophils Percent Auto 0.3 % (0.2-1.2); Hematocrit 46.5 % (42.0-52.0); Hemoglobin 15.3 g/dL (14.0-18.0); Immature Granulocyte Absolute 0.22 K/mm3 (0.00-0.031); Lymphocytes Absolute Auto 0.51 K/mm3 (0.9-3.2); Lymphocytes Percent Auto 2.3 % (18.3-44.2); Mean Corpuscular HGB Conc 32.9 g/dl (32-36); Mean Corpuscular Hemoglobin 28.9 pg (26-34); Mean Corpuscular Volume 87.7 fl (80-100); Mean Platelet Volume 10.2 fl (7.4-10.4); Monocytes Percent Auto 8.7 % (2.6-8.5); Neutrophils Absolute Auto 19.7 K/mm3 (1.3-6.7); Neutrophils Percent Auto 87.7 % (45.5-73.1); Platelet Count Result 166 k/mm3 (150-375); Red Cell Distribution Width 13.4 % (11.5-14.5); White Blood Count 22.5 K/mm3 (4.5-10.0)
[2021-12-18 17:06] LABS: Lactic Acid Reflex 2.3 mmol/L (0.7-2.0)
--- NOTE | 2021-12-18 17:30 | PM.IMHP ---
H&P: HPI History of Present Illness Date/Time: 12/18/21 17:30 Chief Complaint: Abdominal pain. Narrative: This is a very pleasant 56-year-old male with history of kidney stones, insulin-dependent diabetes, hypertension, and dyslipidemia who presented to the emergency department via EMS from home for evaluation of abdominal pain. He was recently hospitalized between 12/07 and 12/09/2021 at which time he he was admitted with a left mid ureteral calculus with hydronephrosis after presenting with abdominal pain. He had a cystoscopy with left retrograde pyelogram and left ureteroscopy with holmium laser of renal calculi and UPJ stone with left ureteral stent placement per Dr. Lazcano on December 08. He was discharged were a prescription for ciprofloxacin which he did complete. He has now been home for a little over a week and he return to work on Tuesday. He continues to have some mild left-sided discomfort and yesterday he came home a bit early as he thought that perhaps he over did it at work as he had increasing pain in his left flank. Last night however the pain intensified and was associated with nausea and vomiting. He has also been experiencing dysuria and reports sweats and subjective fever as well. This afternoon he took a nap and not long prior to arrival he yelled out for his and she came into the room and found him slumped on the floor, leaning against the bed. He had urinated on himself and he seemed too weak to get himself up and thus emergency services were called. He does not recall falling and he cannot say with certainty that he did not lose consciousness. CT scan done on arrival to the ER showed moderate left perinephric and periureteral edema suspicious for ascending urinary tract infection in the setting [place] [id number]. Left ureteral stent was noted to be in the expected position. ED physician discussed the case with the on-call urologist who recommends admitting the patient for IV antibiotics. At the time my evaluation the patient is finally resting after receiving IV morphine. He continues to have pain in the left flank which radiates somewhat into the groin. He is no longer feeling nauseated. On exam, his bladder was distended and he was straight catheterized x1 which yielded nearly 700 mL of urine. Review of Systems Review of Systems: Twelve systems were reviewed. No cold or flu symptoms. No chest pain or shortness of breath. Glucose has been running a bit high recently. No blurry vision, polydipsia, or polyuria. Except as documented, all other systems were reviewed and are negative. [facility] Past Medical History Medical History (Updated 12/18/21 @ 21:25 by Susy Milligan PA-C) Glaucoma Hypertension Kidney stones Type 2 diabetes mellitus Surgical History Surgical History (Updated 12/18/21 @ 21:21 by Susy Milligan PA-C) History of cholecystectomy History of cystoscopy History of tonsillectomy Family History Family History Other Asthma Family history of malignant neoplasm Hypertension Social History Social History Social History: Surrogate medical decision maker: Glorianeel Jaffe, spouse. Code status: Full code. Smoking status: Never smoker Second hand tobacco smoke exposure: No Alcohol intake: current Drinks per week: 1 Substance use: never Substance use type: does not use Additional living arrangements comments: Lives with in [place]. Additional occupation/education comments: [employer]. Spiritual care concerns: No Meds Home Medications and Allergies Home Medications Medication Instructions Recorded Confirmed Type ondansetron 4 mg disintegrating 4 mg PO Q8H PRN nausea and 12/05/21 12/18/21 Rx tablet vomiting #20 tabs amlodipine 5 mg tablet (Norvasc) 5 mg PO DAILY 12/07/21 12/18/21 History bimatoprost 0.01 % eye
[2021-12-18 18:20] LABS: Appearance Urine Clear (Clear); Bilirubin Urine Negative (Negative); Blood Urine 3+ (Negative); Color Urine Yellow (Yellow); Glucose Urine UA 3+ mg/dL (Negative); Ketones Urine Negative (Negative); Leukocyte Esterase Ur Negative LEU/UL (Negative); Nitrate Urine Negative (Negative); Protein Urine 3+ mg/dL (Negative); Specific Grav Ur 1.015 (1.001-1.035); Urobilinogen Urine 0.2 mg/dL (<2.0); pH Urine 5.5 (5.0-9.0)
[2021-12-18 18:31] LABS: Mucus Urine Few /lpf; Squamous Epithelial Cell Urine Rare /hpf (Few)
[2021-12-18 18:33] LABS: Add Urine Microscopic? YES
--- NOTE | 2021-12-18 19:30 | ADMGEN ---
This patient, Eduardo Jaffe, was admitted to [facility] Surg Room 300-1903. Patient/family oriented to hospital policies and general routines including ID bracelet, bed and alarms, visiting hours, pain management, procedures, bathroom and other care routines, personal items, smoking policy, room service/diet, and visiting hours. Information on how to activate the Rapid Response Team has been discussed. Patient/Family are encouraged to report perceived risks to care and to ask questions if they do not understand what they are told or what they should do.
[2021-12-18] MEDS: MORPHINE SULFATE (*CRX) 4 MG/ML INJ IV PUSH (19:48)
[2021-12-18 19:53] LABS: Reflex Lactic Acid Yes or No Add Lactic
[2021-12-18 21:19] LABS: Glucose Point of Care 222 mg/dl (65-105)
--- NOTE | 2021-12-18 21:24 | ADMGEN ---
This patient, Eduardo Jaffe, was admitted to [address] [place] [address] Room 300-01. Patient/family oriented to hospital policies and general routines including ID bracelet, bed and alarms, visiting hours, pain management, procedures, bathroom and other care routines, personal items, smoking policy, room service/diet, and visiting hours. Information on how to activate the Rapid Response Team has been discussed. Patient/Family are encouraged to report perceived risks to care and to ask questions if they do not understand what they are told or what they should do.
[2021-12-18 21:47] LABS: Lactic Acid 1.3 mmol/L (0.7-2.0)
[2021-12-18] MEDS: HYDROcodone/acetaminophen (*CRX) 5-325 MG TABLET 1 TAB PO (21:56)
[2021-12-18] MEDS: SODIUM CHLORIDE 0.9% IV 1,000 ML 100 ML IV CONT (23:03)
[2021-12-18] MEDS: LATANOPROST 0.005% OP SOLN 2.5 ML BTL 1 DROP EACH EYE (23:04)
[2021-12-19] VITALS (8 sets, daily range): BP systolic 142–188; BP diastolic 74–83; PULSE 100–130; RESP 18–24; TEMP 35.6–37.8; O2SAT 94–99
[2021-12-19] MEDS: MORPHINE SULFATE (*CRX) 4 MG/ML INJ IV PUSH ×2 (00:01→08:38)
[2021-12-19] MEDS: ONDANSETRON INJ 4 MG/2 ML VIAL IV PUSH ×2 (00:02→08:38)
[2021-12-19] MEDS: ACETAMINOPHEN 325 MG TABLET 650 MG PO ×2 (00:46→18:06)
[2021-12-19] MEDS: HYDROcodone/acetaminophen (*CRX) 5-325 MG TABLET 1 TAB PO ×2 (05:24→16:36)
[2021-12-19 06:24] LABS: Basophils Absolute Auto 0.1 K/mm3 (0.0-0.1); Basophils Percent Auto 0.3 % (0.2-1.2); Eosinophils Absolute Auto 0.2 K/mm3 (0-0.3); Eosinophils Percent Auto 0.8 % (0-4.4); Hematocrit 45.4 % (42.0-52.0); Hemoglobin 14.6 g/dL (14.0-18.0); Immature Granulocyte Absolute 0.21 K/mm3 (0.00-0.031); Lymphocytes Absolute Auto 0.69 K/mm3 (0.9-3.2); Lymphocytes Percent Auto 3.4 % (18.3-44.2); Mean Corpuscular HGB Conc 32.2 g/dl (32-36); Mean Corpuscular Hemoglobin 29.1 pg (26-34); Mean Corpuscular Volume 90.6 fl (80-100); Mean Platelet Volume 11.4 fl (7.4-10.4); Monocytes Absolute Auto 2.2 K/mm3 (0.1-0.6); Monocytes Percent Auto 10.8 % (2.6-8.5); Neutrophils Percent Auto 83.7 % (45.5-73.1); Platelet Count Result 168 k/mm3 (150-375); Red Blood Count 5.01 M/mm3 (4.6-6.20); Red Cell Distribution Width 13.6 % (11.5-14.5); White Blood Count 20.4 K/mm3 (4.5-10.0)
[2021-12-19 06:34] LABS: Alanine Aminotransferase 95 U/L (6-50); Albumin Level 3.9 g/dL (3.5-5.1); Alkaline Phosphatase 131 U/L (38-126); Anion Gap 12 mmol/L (8-16); Aspartate Amino Transferase 221 U/L (17-59); Bilirubin,Total 0.9 mg/dL (0.2-1.3); Blood Urea Nitrogen 29 mg/dL (9-20); Calcium 8.7 mg/dL (8.4-10.2); Carbon Dioxide 23 mmol/L (22-30); Chloride 101 mmol/L (98-107); Estimated CRCL calculation 89 ml/min; Estimated Glomerular Filt Rate 57; Glucose 183 mg/dL (65-110); Magnesium 2.7 mg/dL (1.6-2.3); Potassium 4.2 mmol/L (3.4-5.0); Sodium 136 mmol/L (137-145)
[2021-12-19 08:28] LABS: Glucose Point of Care 245 mg/dl (65-105)
[2021-12-19] MEDS: INSULIN ASPART (*BKC) 100 UNITS/ML SUB-Q (08:30)
[2021-12-19] MEDS: amLODIPine BESYLATE 5 MG TABLET PO (08:31)
--- NOTE | 2021-12-19 09:37 | WPDURCON ---
Assessment and Plan Assessment and plan (1) Urinary retention: Code(s): R33.9 - Retention of urine, unspecified Status: Acute (2) Acute kidney injury: Code(s): N17.9 - Acute kidney failure, unspecified Status: Acute (3) Pyelonephritis: Code(s): N12 - Tubulo-interstitial nephritis, not specified as acute or chronic Status: Acute (4) Sepsis: Code(s): A41.9 - Sepsis, unspecified organism Status: Acute (5) History of ureter stent: Status: Acute (6) Kidney stone on left side: Code(s): N20.0 - Calculus of kidney Status: Acute Plan 56 yo male with DM, nephrolithiasis s/p left URS with HLL 12/08/[address] Lazcano admitted with suspected pyelonephritis #1 Stones treated he has some small nonobstructive pieces in the lower pole #2 Pyelo continue broad spectrum IV abx, wait blood and urine cultures -given voiding difficulty, recommend kendall catheter to maximally drain urinary tract and avoid reflux into that kidney until he is afebrile and wbc stabilizes. -no procedure planned at this time. Urology Consult Note HPI Date Seen: 12/19/21 Requesting Physician: Jaylin Humphrey PA-C Primary Care Provider: PHYSICIAN NOT ON STAFF Consult Narrative Narrative: Eduardo Jaffe is a 56 year old male with pmh of DM and nephrolithiasis who underwent left URS with HLL by Dr Lazcano on 12/08/21. He presented to ED for left sided flank pain and nausea x [address] shows stent in good position without hydro. He had elevated WBC at 22. He denies GH. He has had some urinary hesitancy and needed to be straight cathed x 1. His pain is localized to left flank is moderate in severity and radiates towards the LLQ. No chills or rigors, + low grade fevers. Denies urgency but has some urinary frequency. Review of Systems Constitutional: Constitutional: Reports no additional constitutional complaints, Denies fever(s), Denies snoring and Denies weakness Eyes: Eyes: Reports no additional eye complaints ENT: Reports system reviewed and no additional complaints, except as documented, Denies dysphagia, Denies dizziness, Denies dry mouth and Denies ear discharge Respiratory: Respiratory: Reports no additional respiratory complaints, Denies hemoptysis, Denies snoring and Denies wheezing Gastrointestinal: Gastrointestinal: Reports as per HPI, Reports no additional gastrointestinal complaints, Denies dysphagia, Denies loose stools and Denies nausea Genitourinary: Genitourinary: Reports no additional male genitourinary complaints and Reports as per HPI Musculoskeletal: Musculoskeletal: Reports no additional musculoskeletal complaints and Reports as per HPI Integumentary/Breasts: Skin/Breast: Reports system reviewed and no additional complaints, except as docu and Reports as per HPI Neurologic: Reports system reviewed and no additional complaints, except as documented, Reports as per HPI, Denies confusion, Denies dizziness, Denies memory loss and Denies weakness Psychiatric: Psychiatric: Reports no additional psychiatric complaints, Reports as per HPI, Denies confusion, Denies memory loss and Denies mood swings Endocrine: Endocrine: Reports no additional endocrine complaints Hematologic/Lymphatic: Hematologic/Lymphatic: Reports no additional hematologic/lymphatic complaints and Reports as per HPI Allergic/Immunologic: Allergic/Immunologic: Reports no additional allergic/immunologic complaints, Reports as per HPI and Denies wheezing PMFSH Past Medical History Medical History (Updated 12/18/21 @ 21:25 by Susy Milligan PA-C) Glaucoma Hypertension Kidney stones Type 2 diabetes mellitus Surgical History Surgical History (Updated 12/18/21 @ 21:21 by Susy Milligan PA-C) History of cholecystectomy History of cystoscopy History of tonsillectomy Family History Family History Other Asthma Family hist
--- NOTE | 2021-12-19 10:30 | PC.NURSE ---
Patient refused at this time placement of kendall. Discussed reason for kendall.
--- NOTE | 2021-12-19 11:18 | P.PNIM_ITS ---
Progress Note: A&P Assessment and Plan (1) Sepsis: Code(s): A41.9 - Sepsis, unspecified organism Status: Acute Assessment and Plan: Present on admission and supported by low-grade fever, tachycardia, tachypnea, leukocytosis, lactic acidosis, transaminitis, and acute kidney injury in the setting of pyelonephritis. * blood cultures pending * urine cultures pending * monitor vital signs, urine output, labs * continue IV antibiotics and IV fluids (2) Pyelonephritis: Code(s): N12 - Tubulo-interstitial nephritis, not specified as acute or chronic Status: Acute Assessment and Plan: UA abnormal on presentation with dysuria, abdominal and flank pain. * CT of the abdomen/pelvis shows moderate left perinephric and periureteral edema, concerning for ascending urinary tract infection * appreciate urology consultation * continue IV Zosyn * urine cultures pending, await results and tailor antibiotics accordingly (3) Acute kidney injury: Code(s): N17.9 - Acute kidney failure, unspecified Status: Acute Assessment and Plan: Secondary to urinary retention and sepsis. * creatinine 1.4 on presentation, slightly improved with IV fluids 12.3 today * Owens catheter initiated to allow for maximum drainage of urinary tract and avoid reflux * continue IV fluids * empagliflozin-metformin on hold * monitor BMP * renal ultrasound pending (4) Urinary retention: Code(s): R33.9 - Retention of urine, unspecified Status: Acute Assessment and Plan: patient required straight catheterization in the emergency department but subsequently has voided independently. * per Urology recommendations, Owens catheter has been initiated to allow appropriate drainage in the setting of acute infection * monitor urine output (5) Elevated LFTs: Code(s): R79.89 - Other specified abnormal findings of blood chemistry Status: Acute Assessment and Plan: Most likely related to sepsis. * slight increase in AST and ALT noted today * total bilirubin remains within normal limits * will evaluate hepatitis panel and right upper quadrant ultrasound if persistent pending improvement of acute infection (6) Type 2 diabetes mellitus with hyperglycemia: Code(s): E11.65 - Type 2 diabetes mellitus with hyperglycemia Status: Acute Assessment and Plan: A1c is 6.5 * continue Accu-Cheks, sliding scale insulin, hypoglycemic protocol * continue basal insulin * oral hypoglycemics on hold. (7) Hypertension: Code(s): I10 - Essential (primary) hypertension Status: Chronic Assessment and Plan: Blood pressures reviewed and have been reasonably controlled. Last BP 142/78 * continue home amlodipine. * hold home losartan at this time while monitoring renal function * monitor BP trends Subjective Date/time seen: 12/19/21 11:18 Interval history: date of service: 12/19/2021 Eduardo Jaffe is a 56-year-old male with a history of type 2 diabetes mellitus, hypertension, kidney stones, and recent left ureteroscopy with laser of renal calculi and left ureteral stent placement on 12/08/2021 who is seen in follow-up for pyelonephritis. patient reports he is still feeling quite poorly today. She describes left abdominal, flank, and back pain that he rates as 8- 9/10. He describes this as intermittent stabbing sensation that has been persistent for most of the morning. He has nausea but no episodes of emesis tod
--- NOTE | 2021-12-19 11:18 | PM.IMPN ---
Progress Note: A&P Assessment and Plan (1) Sepsis: Code(s): A41.9 - Sepsis, unspecified organism Status: Acute Assessment and Plan: Present on admission and supported by low-grade fever, tachycardia, tachypnea, leukocytosis, lactic acidosis, transaminitis, and acute kidney injury in the setting of pyelonephritis. blood cultures pending urine cultures pending monitor vital signs, urine output, labs continue IV antibiotics and IV fluids (2) Pyelonephritis: Code(s): N12 - Tubulo-interstitial nephritis, not specified as acute or chronic Status: Acute Assessment and Plan: UA abnormal on presentation with dysuria, abdominal and flank pain. CT of the abdomen/pelvis shows moderate left perinephric and periureteral edema, concerning for ascending urinary tract infection appreciate urology consultation continue IV Zosyn urine cultures pending, await results and tailor antibiotics accordingly (3) Acute kidney injury: Code(s): N17.9 - Acute kidney failure, unspecified Status: Acute Assessment and Plan: Secondary to urinary retention and sepsis. creatinine 1.4 on presentation, slightly improved with IV fluids 12.3 today Owens catheter initiated to allow for maximum drainage of urinary tract and avoid reflux continue IV fluids empagliflozin-metformin on hold monitor BMP renal ultrasound pending (4) Urinary retention: Code(s): R33.9 - Retention of urine, unspecified Status: Acute Assessment and Plan: patient required straight catheterization in the emergency department but subsequently has voided independently. per Urology recommendations, Owens catheter has been initiated to allow appropriate drainage in the setting of acute infection monitor urine output (5) Elevated LFTs: Code(s): R79.89 - Other specified abnormal findings of blood chemistry Status: Acute Assessment and Plan: Most likely related to sepsis. slight increase in AST and ALT noted today total bilirubin remains within normal limits will evaluate hepatitis panel and right upper quadrant ultrasound if persistent pending improvement of acute infection (6) Type 2 diabetes mellitus with hyperglycemia: Code(s): E11.65 - Type 2 diabetes mellitus with hyperglycemia Status: Acute Assessment and Plan: A1c is 6.5 continue Accu-Cheks, sliding scale insulin, hypoglycemic protocol continue basal insulin oral hypoglycemics on hold. (7) Hypertension: Code(s): I10 - Essential (primary) hypertension Status: Chronic Assessment and Plan: Blood pressures reviewed and have been reasonably controlled. Last BP 142/78 continue home amlodipine. hold home losartan at this time while monitoring renal function monitor BP trends Subjective Date/time seen: 12/19/21 11:18 Interval history: date of service: 12/19/2021 Eduardo Jaffe is a 56-year-old male with a history of type 2 diabetes mellitus, hypertension, kidney stones, and recent left ureteroscopy with laser of renal calculi and left ureteral stent placement on 12/08/2021 who is seen in follow-up for pyelonephritis. patient reports he is still feeling quite poorly today. She describes left abdominal, flank, and back pain that he rates as 8-9/10. He describes this as intermittent stabbing sensation that has been persistent for most of the morning. He has nausea but no episodes of emesis today. he has been up to urinate 3 times today. States his urine is dark in color but denies hematuria. he does endorse dysuria. He states most recently when he got up to urinate, his legs gave out and he felt very weak. This weakness has been going on for a couple of days any also endorses associated lightheadedness, chills, sweats, and dull headache. He denies shortness breath, cough, chest pain, palpitations,dizziness, or fever.
[2021-12-19 11:32] LABS: Glucose Point of Care 255 mg/dl (65-105)
[2021-12-19] MEDS: SODIUM CHLORIDE 0.9% IV 1,000 ML 100 ML IV CONT (13:00)
[2021-12-19] MEDS: HYDROmorphone HCL INJ (*CRX) 1 MG/ML SYR 0.5 MG IV PUSH ×2 (13:10→18:06)
[2021-12-19 16:42] LABS: Glucose Point of Care 174 mg/dl (65-105)
[2021-12-19 18:09] LABS: Glucose Point of Care 230 mg/dl (65-105)
[2021-12-19] MEDS: LIDOCAINE HCL 2% GEL UROJET 10 ML PKG MUCOUS MEM (19:55)
[2021-12-19] MEDS: LATANOPROST 0.005% OP SOLN 2.5 ML BTL 1 DROP EACH EYE (21:44)
[2021-12-19] MEDS: oxyCODONE/ACETAMINOPHEN (*CRX) 5-325 MG TABLET 1 TABLET PO (21:49)
[2021-12-20] VITALS (11 sets, daily range): BP systolic 160–185; BP diastolic 61–93; PULSE 99–112; RESP 16–20; TEMP 36.4–38.5; O2SAT 91–100
[2021-12-20] MEDS: SODIUM CHLORIDE 0.9% IV 1,000 ML 100 ML IV CONT ×2 (00:17→11:35)
[2021-12-20] MEDS: oxyCODONE/ACETAMINOPHEN (*CRX) 10-325 MG TABLET 1 TAB PO ×2 (03:05→10:28)
[2021-12-20] MEDS: LIDOCAINE HCL 2% GEL UROJET 10 ML PKG MUCOUS MEM ×2 (04:55→10:30)
[2021-12-20 06:27] LABS: Basophils Percent Auto 0.2 % (0.2-1.2); Eosinophils Percent Auto 0.1 % (0-4.4); Hematocrit 42.6 % (42.0-52.0); Hemoglobin 13.5 g/dL (14.0-18.0); Immature Granulocyte Absolute 0.11 K/mm3 (0.00-0.031); Immature Granulocyte Percent A 0.8 % (0-0.5); Lymphocytes Absolute Auto 0.73 K/mm3 (0.9-3.2); Lymphocytes Percent Auto 5.3 % (18.3-44.2); Mean Corpuscular HGB Conc 31.7 g/dl (32-36); Mean Corpuscular Hemoglobin 28.5 pg (26-34); Mean Corpuscular Volume 90.1 fl (80-100); Mean Platelet Volume 10.8 fl (7.4-10.4); Monocytes Absolute Auto 1.5 K/mm3 (0.1-0.6); Monocytes Percent Auto 10.6 % (2.6-8.5); Neutrophils Absolute Auto 11.5 K/mm3 (1.3-6.7); Platelet Count Result 175 k/mm3 (150-375); Red Blood Count 4.73 M/mm3 (4.6-6.20); Red Cell Distribution Width 13.6 % (11.5-14.5); White Blood Count 13.9 K/mm3 (4.5-10.0)
[2021-12-20 06:38] LABS: Anion Gap 10 mmol/L (8-16); Blood Urea Nitrogen 30 mg/dL (9-20); Calcium 8.1 mg/dL (8.4-10.2); Carbon Dioxide 22 mmol/L (22-30); Chloride 99 mmol/L (98-107); Estimated CRCL calculation 74 ml/min; Estimated Glomerular Filt Rate 45; Glucose 144 mg/dL (65-110); Potassium 3.7 mmol/L (3.4-5.0); Sodium 131 mmol/L (137-145)
[2021-12-20] MEDS: amLODIPine BESYLATE 5 MG TABLET PO (07:59)
[2021-12-20 09:02] LABS: Glucose Point of Care 152 mg/dl (65-105)
[2021-12-20 09:10] LABS: Alanine Aminotransferase 169 U/L (6-50); Albumin Level 3.4 g/dL (3.5-5.1); Alkaline Phosphatase 179 U/L (38-126); Aspartate Amino Transferase 206 U/L (17-59); Bilirubin,Total 1.2 mg/dL (0.2-1.3)
[2021-12-20] MEDS: AMPICILLIN SULB 1.5 GM/NS 50ML 1.5 GM/50 ML VIAL IVPB ×4 (09:47→23:32)
--- NOTE | 2021-12-20 10:40 | WPDUROPN2 ---
Progress Note: A&P Assessment and Plan (1) Urinary retention: Code(s): R33.9 - Retention of urine, unspecified Status: Acute Assessment and Plan: kendall in place for maximal urinary drainage, wbc improving (2) Acute kidney injury: Code(s): N17.9 - Acute kidney failure, unspecified Status: Acute (3) Pyelonephritis: Code(s): N12 - Tubulo-interstitial nephritis, not specified as acute or chronic Status: Acute Assessment and Plan: culture with enterococcus, abx transitioned to ampicillin (4) Sepsis: Code(s): A41.9 - Sepsis, unspecified organism Status: Acute (5) History of ureter stent: Status: Acute Assessment and Plan: cinthia shows stones, no hydro 12/19/21 (6) Kidney stone on left side: Code(s): N20.0 - Calculus of kidney Status: Acute Assessment and Plan: stent in good position, no surgical procedures planned at this time Subjective Subjective Date/Time Seen: 12/20/21 10:40 Review of Systems Review of Systems: All systems reviewed & are unremarkable except as noted in HPI and below Exam Narrative: General: Obese, well-appearing 56-year-old male, sitting up in bed, comfortable, NARD Neuro: awake, alert and oriented x4, speech clear, no focal neuro deficits noted HEENMT: normocephalic, atraumatic, EOMI, sclerae anicteric, moist oral mucosa Respiratory: clear to auscultation bilaterally, nonlabored breathing Cardio: regular rate Abdomen: protuberant, normoactive bowel sounds, soft, tender to palpation in left lower quadrant and flank : no CVA tenderness, kendall CYU Extremities: no edema, erythema, or tenderness to palpation, DP pulses 2+ bilaterally Skin: no rashes or lesions, warm and dry Psych: appropriate mood and affect, judgment and insight intact Objective Data Vital Signs Vital Signs: Vital Signs - 24 hr 12/19/21 14:00 12/19/21 18:00 12/19/21 18:06 Temperature 36.7 C 37.7 C H 37.7 C H Pulse Rate 111 H Respiratory Rate 20 Blood Pressure 164/79 H Pulse Oximetry 95 Oxygen Delivery 12/19/21 19:06 12/19/21 14:49 12/19/21 21:31 Temperature 37.1 C 37.3 C Pulse Rate 130 H 103 H Respiratory Rate 24 H 18 Blood Pressure 178/74 H 154/74 H Pulse Oximetry 99 94 Oxygen Delivery Room Air 12/20/21 05:21 12/20/21 10:05 12/20/21 08:00 Temperature 36.8 C Pulse Rate 99 Respiratory Rate 18 Blood Pressure 160/67 H Pulse Oximetry 94 Oxygen Delivery Room Air Room Air 12/20/21 09:00 12/20/21 09:05 12/20/21 09:10 Temperature Pulse Rate 103 H 106 H 111 H Respiratory Rate Blood Pressure 161/68 H 176/89 H 179/77 H Pulse Oximetry 93 93 92 Oxygen Delivery Intake/Output Intake/Output: Intake & Output 12/17/21 12/18/21 12/19/21 12/20/21 23:59 23:59 23:59 23:59 Intake Total 2150 4630 910 Output Total 700 2025 1550 Balance 1450 2605 -640 Meds/Results Medications: Active Medications Generic Name Dose Route Start Last Admin Trade Name Freq PRN Reason Stop Dose Admin Acetaminophen 650 mg 12/18/21 21:39 12/19/21 18:06 Acetaminophen 325 Mg Tablet PO 650 mg Q6H PRN Administration Mild Pain (1-3) or Fever Amlodipine Besylate 5 mg 12/19/21 09:00 12/20/21 07:59 Amlodipine Besylate 5 Mg Tablet PO 5 mg DAILY NUPUR Administration Dextrose 12.5 gm 12/18/21 21:32 Dextrose 50% 25 Gm/50 Ml Syringe IV PUSH PRN PRN Hypoglycemia Protocol Glucagon 1 mg 12/18/21 21:32 Glucagon For Inj 1 Mg Vial IM PRN PRN Hypoglycemia Protocol Glucose 15 gm 12/18/21 21:32 Glucose Oral Gel 15 Gm Of Glucse In 37.5 Gm Tube PO PRN PRN Hypoglycemia Protocol Hydromorphone HCl 0.5 mg 12/19/21 18:40 Hydromorphone Hcl Inj (*Crx) 1 Mg/Ml Syr IV PUSH Q3H PRN Breakthrough Pain Dextrose 1,000 mls @ 100 mls/hr 12/18/21 21:32 Dextrose 5% 1,000 Ml IVPB PRN PRN Hypoglyc
[2021-12-20 11:44] LABS: Glucose Point of Care 151 mg/dl (65-105)
--- NOTE | 2021-12-20 15:10 | P.PNIM_ITS ---
Progress Note: A&P Assessment and Plan (1) Sepsis: Code(s): A41.9 - Sepsis, unspecified organism Status: Acute Assessment and Plan: Present on admission and supported by low-grade fever, tachycardia, tachypnea, leukocytosis, lactic acidosis, transaminitis, and acute kidney injury in the setting of pyelonephritis. * blood cultures pending * monitor vital signs, urine output, labs * continue IV antibiotics and IV fluids * afebrile today, tachypnea resolved, leukocytosis and tachycardia improving (2) Pyelonephritis: Code(s): N12 - Tubulo-interstitial nephritis, not specified as acute or chronic Status: Acute Assessment and Plan: UA abnormal on presentation with dysuria, abdominal and flank pain. * CT of the abdomen/pelvis shows moderate left perinephric and periureteral edema, concerning for ascending urinary tract infection * appreciate urology consultation * preliminary urine culture with growth of Enterococcus * stop Zosyn * transition to IV ampicillin while awaiting final culture results (3) Acute kidney injury: Code(s): N17.9 - Acute kidney failure, unspecified Status: Acute Assessment and Plan: Secondary to urinary retention and sepsis. * creatinine increased to 1.6 today * Owens catheter initiated 12/19 to allow for maximum drainage of urinary tract and avoid reflux * continue IV fluids; increase to 150 ml/hr * renal ultrasound revealed bilateral nephrolithiasis without hydronephrosis * empagliflozin-metformin and losartan on hold * monitor BMP (4) Urinary retention: Code(s): R33.9 - Retention of urine, unspecified Status: Acute Assessment and Plan: patient required straight catheterization in the emergency department but subsequently has voided independently. * per Urology recommendations, Owens catheter has been initiated to allow appropriate drainage in the setting of acute infection * monitor urine output (5) Elevated LFTs: Code(s): R79.89 - Other specified abnormal findings of blood chemistry Status: Acute Assessment and Plan: Most likely related to sepsis. * LFTs remain persistently elevated * total bilirubin remains within normal limits * will evaluate hepatitis panel and right upper quadrant ultrasound for complete evaluation (6) Type 2 diabetes mellitus with hyperglycemia: Code(s): E11.65 - Type 2 diabetes mellitus with hyperglycemia Status: Acute Assessment and Plan: A1c is 6.5. blood sugars have been well controlled this admission * continue Accu-Cheks, sliding scale insulin, hypoglycemic protocol * continue basal insulin * oral hypoglycemics on hold. (7) Hypertension: Code(s): I10 - Essential (primary) hypertension Status: Chronic Assessment and Plan: Blood pressures reviewed and have been reasonably controlled. Last BP 160/61 * continue home amlodipine. * hold home losartan at this time while monitoring renal function * orthostatic vital signs negative * monitor BP trends Subjective Date/time seen: 12/20/21 15:10 Interval history: date of service: 12/20/2021 Eduardo Jaffe is a 56-year-old male with a history of type 2 diabetes mellitus, hypertension, kidney stones, and recent left ureteroscopy with laser of renal calculi and left ureteral stent placement on 12/08/2021 who is seen in follow-up for pyelonephritis. is starting to feel better today. He does complain of burning in his pelvic region and
--- NOTE | 2021-12-20 15:10 | PM.IMPN ---
Progress Note: A&P Assessment and Plan (1) Sepsis: Code(s): A41.9 - Sepsis, unspecified organism Status: Acute Assessment and Plan: Present on admission and supported by low-grade fever, tachycardia, tachypnea, leukocytosis, lactic acidosis, transaminitis, and acute kidney injury in the setting of pyelonephritis. blood cultures pending monitor vital signs, urine output, labs continue IV antibiotics and IV fluids afebrile today, tachypnea resolved, leukocytosis and tachycardia improving (2) Pyelonephritis: Code(s): N12 - Tubulo-interstitial nephritis, not specified as acute or chronic Status: Acute Assessment and Plan: UA abnormal on presentation with dysuria, abdominal and flank pain. CT of the abdomen/pelvis shows moderate left perinephric and periureteral edema, concerning for ascending urinary tract infection appreciate urology consultation preliminary urine culture with growth of Enterococcus stop Zosyn transition to IV ampicillin while awaiting final culture results (3) Acute kidney injury: Code(s): N17.9 - Acute kidney failure, unspecified Status: Acute Assessment and Plan: Secondary to urinary retention and sepsis. creatinine increased to 1.6 today Owens catheter initiated 12/19 to allow for maximum drainage of urinary tract and avoid reflux continue IV fluids; increase to 150 ml/hr renal ultrasound revealed bilateral nephrolithiasis without hydronephrosis empagliflozin-metformin and losartan on hold monitor BMP (4) Urinary retention: Code(s): R33.9 - Retention of urine, unspecified Status: Acute Assessment and Plan: patient required straight catheterization in the emergency department but subsequently has voided independently. per Urology recommendations, Owens catheter has been initiated to allow appropriate drainage in the setting of acute infection monitor urine output (5) Elevated LFTs: Code(s): R79.89 - Other specified abnormal findings of blood chemistry Status: Acute Assessment and Plan: Most likely related to sepsis. LFTs remain persistently elevated total bilirubin remains within normal limits will evaluate hepatitis panel and right upper quadrant ultrasound for complete evaluation (6) Type 2 diabetes mellitus with hyperglycemia: Code(s): E11.65 - Type 2 diabetes mellitus with hyperglycemia Status: Acute Assessment and Plan: A1c is 6.5. blood sugars have been well controlled this admission continue Accu-Cheks, sliding scale insulin, hypoglycemic protocol continue basal insulin oral hypoglycemics on hold. (7) Hypertension: Code(s): I10 - Essential (primary) hypertension Status: Chronic Assessment and Plan: Blood pressures reviewed and have been reasonably controlled. Last BP 160/61 continue home amlodipine. hold home losartan at this time while monitoring renal function orthostatic vital signs negative monitor BP trends Subjective Date/time seen: 12/20/21 15:10 Interval history: date of service: 12/20/2021 Eduardo Jaffe is a 56-year-old male with a history of type 2 diabetes mellitus, hypertension, kidney stones, and recent left ureteroscopy with laser of renal calculi and left ureteral stent placement on 12/08/2021 who is seen in follow-up for pyelonephritis. is starting to feel better today. He does complain of burning in his pelvic region and overall pelvic discomfort with Owens catheter. He states his last bowel movement was about 2 or 3 days ago and he is feeling a bit constipated. He endorses abdominal bloating. Denies abdominal pain, nausea, vomiting, fever, or chills. He does endorse sweats. He still feels very weak but was able to get up with therapy today and tolerated this well. He denies dizziness or lightheadedness. His appetite is good. He denies shortness of
[2021-12-20 16:52] LABS: Glucose Point of Care 121 mg/dl (65-105)
[2021-12-20] MEDS: LATANOPROST 0.005% OP SOLN 2.5 ML BTL 1 DROP EACH EYE (20:36)
[2021-12-20] MEDS: SODIUM CHLORIDE 0.9% IV 1,000 ML 150 ML IV CONT (20:37)
[2021-12-20] MEDS: ACETAMINOPHEN 325 MG TABLET 650 MG PO (23:32)
[2021-12-21] VITALS (10 sets, daily range): BP systolic 127–170; BP diastolic 76–89; PULSE 88–189; RESP 16–20; TEMP 36.1–37.5; O2SAT 93–97
[2021-12-21 02:05] LABS: Glucose Point of Care 126 mg/dl (65-105)
[2021-12-21] MEDS: oxyCODONE/ACETAMINOPHEN (*CRX) 10-325 MG TABLET 1 TAB PO ×2 (04:44→17:46)
[2021-12-21] MEDS: LIDOCAINE HCL 2% GEL UROJET 10 ML PKG MUCOUS MEM ×2 (04:45→17:46)
[2021-12-21] MEDS: SODIUM CHLORIDE 0.9% IV 1,000 ML 150 ML IV CONT (04:45)
[2021-12-21] MEDS: AMPICILLIN SULB 1.5 GM/NS 50ML 1.5 GM/50 ML VIAL IVPB (05:29)
[2021-12-21 06:27] LABS: Hematocrit 44.5 % (42.0-52.0); Hemoglobin 14.3 g/dL (14.0-18.0); Mean Corpuscular HGB Conc 32.1 g/dl (32-36); Mean Corpuscular Hemoglobin 28.3 pg (26-34); Mean Corpuscular Volume 88.1 fl (80-100); Mean Platelet Volume 10.8 fl (7.4-10.4); Platelet Count Result 230 k/mm3 (150-375); Red Blood Count 5.05 M/mm3 (4.6-6.20); Red Cell Distribution Width 13.5 % (11.5-14.5); White Blood Count 12.5 K/mm3 (4.5-10.0)
[2021-12-21 06:40] LABS: Alanine Aminotransferase 365 U/L (6-50); Albumin Level 3.3 g/dL (3.5-5.1); Alkaline Phosphatase 358 U/L (38-126); Anion Gap 13 mmol/L (8-16); Aspartate Amino Transferase 372 U/L (17-59); Bilirubin,Total 1.5 mg/dL (0.2-1.3); Blood Urea Nitrogen 26 mg/dL (9-20); Calcium 8.4 mg/dL (8.4-10.2); Carbon Dioxide 20 mmol/L (22-30); Chloride 99 mmol/L (98-107); Estimated CRCL calculation 89 ml/min; Estimated Glomerular Filt Rate 57; Glucose 188 mg/dL (65-110); Potassium 3.7 mmol/L (3.4-5.0); Sodium 132 mmol/L (137-145)
[2021-12-21 07:08] LABS: Hepatitis B Surface Antigen Negative (Negative)
[2021-12-21 07:14] LABS: HAV RESULT Negative (Negative); Hepatitis B Core IgM Result Negative (Negative)
[2021-12-21 07:26] LABS: Hepatitis C Virus Antibody Negative (Negative)
[2021-12-21 07:28] LABS: Glucose Point of Care 212 mg/dl (65-105)
[2021-12-21] MEDS: amLODIPine BESYLATE 5 MG TABLET PO (08:51)
[2021-12-21] MEDS: INSULIN ASPART (*BKC) 100 UNITS/ML SUB-Q ×2 (08:51→12:55)
--- NOTE | 2021-12-21 10:47 | WPDUROPN2 ---
Progress Note: A&P Assessment and Plan (1) Pyelonephritis: Code(s): N12 - Tubulo-interstitial nephritis, not specified as acute or chronic Status: Acute Assessment and Plan: Urine culture shows Enterococcus. Can transition to p.o. antibiotics when afebrile. Continue Owens catheter until afebrile and then okay for voiding trial (2) History of kidney stones: Code(s): Z87.442 - Personal history of urinary calculi Status: Acute Subjective Subjective Date/Time Seen: 12/21/21 10:47 Feels improved. Would really like to get his catheter out. Urine culture shows Enterococcus sensitive to ampicillin and nitrofurantoin Exam Narrative: No acute distress Urine clear Objective Data Vital Signs Vital Signs: Vital Signs - 24 hr 12/20/21 14:00 12/20/21 22:00 12/20/21 20:00 Temperature 97.5 F L 101.0 F H 101.0 F H Pulse Rate 105 H 102 H 102 H Respiratory Rate 16 19 19 Blood Pressure 160/61 H 160/87 H 160/87 H Pulse Oximetry 100 92 92 12/20/21 20:05 12/20/21 20:10 12/20/21 23:32 Temperature 101.3 F H 100.1 F H 101.3 F H Pulse Rate 101 H 112 H Respiratory Rate 18 20 Blood Pressure 177/93 H 185/87 H Pulse Oximetry 91 91 12/21/21 00:19 12/21/21 00:28 12/21/21 06:00 Temperature 99.5 F 99.5 F 98.6 F Pulse Rate 189 H Respiratory Rate 20 Blood Pressure 127/76 Pulse Oximetry 95 Intake/Output Intake/Output: Intake & Output 12/18/21 12/19/21 12/20/21 12/21/21 23:59 23:59 23:59 23:59 Intake Total 2150 4630 4640 1630 Output Total 700 2025 3700 2250 Balance 1450 2605 940 -620 Meds/Results Medications: Active Medications Generic Name Dose Route Start Last Admin Trade Name Freq PRN Reason Stop Dose Admin Acetaminophen 650 mg 12/18/21 21:39 12/20/21 23:32 Acetaminophen 325 Mg Tablet PO 650 mg Q6H PRN Administration Mild Pain (1-3) or Fever Amlodipine Besylate 5 mg 12/19/21 09:00 12/21/21 08:51 Amlodipine Besylate 5 Mg Tablet PO 5 mg DAILY NUPUR Administration Dextrose 12.5 gm 12/18/21 21:32 Dextrose 50% 25 Gm/50 Ml Syringe IV PUSH PRN PRN Hypoglycemia Protocol Glucagon 1 mg 12/18/21 21:32 Glucagon For Inj 1 Mg Vial IM PRN PRN Hypoglycemia Protocol Glucose 15 gm 12/18/21 21:32 Glucose Oral Gel 15 Gm Of Glucse In 37.5 Gm Tube PO PRN PRN Hypoglycemia Protocol Hydromorphone HCl 0.5 mg 12/19/21 18:40 Hydromorphone Hcl Inj (*Crx) 1 Mg/Ml Syr IV PUSH Q3H PRN Breakthrough Pain Dextrose 1,000 mls @ 100 mls/hr 12/18/21 21:32 Dextrose 5% 1,000 Ml IVPB PRN PRN Hypoglycemia Protocol Sodium Chloride 1,000 mls @ 150 mls/hr 12/18/21 21:35 12/21/21 04:45 Normal Saline Iv IV CONT 150 mls/hr .Q6H40M NUPUR Administration Ampicillin Sodium 1 gm in 50 mls @ 100 mls/hr 12/21/21 12:00 Ampicillin 1 Gm/Ns 50 Ml IVPB Q6HR NUPUR Insulin Aspart 3 - 6 units 12/19/21 08:00 12/21/21 08:51 Insulin Aspart (*Bkc) 100 Units/Ml SUB-Q 3 units TIDWM NUPUR Administration Protocol Insulin Human Regular 0 each 12/19/21 09:00 12/21/21 08:52 Home Medication Insulin: Humulin R U-500 Kwikpen (500 Units/Ml) SUB-Q 200 each QAM NUPUR Administration Latanoprost 1 drop 12/18/21 21:40 12/20/21 20:36 Latanoprost 0.005% Op Soln 2.5 Ml Btl EACH EYE 1 drop HS NUPUR Administration Lidocaine HCl 10 ml 12/19/21 19:13 12/21/21 04:45 Lidocaine Hcl 2% Gel Urojet 10 Ml Pkg MUCOUS MEM 10 ml PRN PRN Administration PENIS PAIN Naloxone HCl 0.1 mg 12/19/21 18:40 Naloxone Hcl 0.4 Mg/Ml Vial IV PUSH Q5MIN PRN resp depression Ondansetron HCl 4 mg 12/18/21 21:38 12/19/21 08:38 Ondansetron Inj 4 Mg/2 Ml Vial IV PUSH 4 mg Q6H PRN Administration Nausea And Vomiting Oxycodone/Acetaminophen 1 tab 12/19/21 18:39 12/21/21 04:44 Oxycodone/Acetaminophen (*Crx) 10-325 Mg Tablet PO 1 tab Q4H PRN Adm
[2021-12-21 11:16] LABS: Glucose Point of Care 207 mg/dl (65-105)
--- NOTE | 2021-12-21 15:27 | P.PNIM_ITS ---
Progress Note: A&P Assessment and Plan (1) Sepsis: Code(s): A41.9 - Sepsis, unspecified organism Status: Acute Assessment and Plan: Present on admission and supported by low-grade fever, tachycardia, tachypnea, leukocytosis, lactic acidosis, transaminitis, and acute kidney injury in the setting of pyelonephritis. * blood cultures pending, negative to date * monitor vital signs, urine output, labs * continue IV antibiotics and IV fluids * patient febrile overnight with Tmax 101.3. Afebrile today. * tachypnea resolved, leukocytosis and tachycardia improving (2) Pyelonephritis: Code(s): N12 - Tubulo-interstitial nephritis, not specified as acute or chronic Status: Acute Assessment and Plan: UA abnormal on presentation with dysuria, abdominal and flank pain. * CT of the abdomen/pelvis shows moderate left perinephric and periureteral edema, concerning for ascending urinary tract infection * appreciate urology consultation * urine culture with growth of >100k Enterococcus * continue IV ampicillin * Zosyn discontinued on 12/20/21 (3) Acute kidney injury: Code(s): N17.9 - Acute kidney failure, unspecified Status: Acute Assessment and Plan: Secondary to urinary retention and sepsis. * Owens catheter initiated 12/19 to allow for maximum drainage of urinary tract and avoid reflux * continue gentle IV fluids * renal ultrasound revealed bilateral nephrolithiasis without hydronephrosis * empagliflozin-metformin and losartan on hold * monitor BMP * creatinine improved to 1.3 today (4) Urinary retention: Code(s): R33.9 - Retention of urine, unspecified Status: Acute Assessment and Plan: Patient required straight catheterization in the emergency department but subsequently has voided independently. * per Urology recommendations, Owens catheter has been initiated to allow appropriate drainage in the setting of acute infection * monitor urine output * plan for voiding trial following resolution of fever (5) Elevated LFTs: Code(s): R79.89 - Other specified abnormal findings of blood chemistry Status: Acute Assessment and Plan: Initially felt to be secondary to sepsis * LFTs remain persistently elevated * slight increase in total bili today to 1.5 * hepatitis panel negative (6) Cirrhosis of liver: Code(s): K74.60 - Unspecified cirrhosis of liver Status: Acute Assessment and Plan: RUQ US completed today for full workup of transaminitis revealed cirrhosis of liver * Reviewed imaging with radiologists. Evidence of liver disease apparent on old CT as far back as 2018 * Patient reports evaluation of abnormal liver findings 5-6 years ago at [facility] but no follow up since that time. Cannot recall specific details or diagnosis * Will place consult to gastroenterology for further evaluation * Platelet count normal. * Will check hepatic panel, PT/INR, and platelets on AM labs * Patient reports 1 alcohol drink/month, denies history of heavy alcohol use. (7) Type 2 diabetes mellitus with hyperglycemia: Code(s): E11.65 - Type 2 diabetes mellitus with hyperglycemia Status: Acute Assessment and Plan: A1c is 6.5. blood sugars reasonably controlled, slightly elevated today * continue Accu-Cheks, high dose sliding scale insulin, hypoglycemic protocol * continue basal insulin * oral hypoglycemics on hold. (8) Hypertension: Code(s): I10 - Essential (primary) hypertension Status: C
--- NOTE | 2021-12-21 15:27 | PM.IMPN ---
Progress Note: A&P Assessment and Plan (1) Sepsis: Code(s): A41.9 - Sepsis, unspecified organism Status: Acute Assessment and Plan: Present on admission and supported by low-grade fever, tachycardia, tachypnea, leukocytosis, lactic acidosis, transaminitis, and acute kidney injury in the setting of pyelonephritis. blood cultures pending, negative to date monitor vital signs, urine output, labs continue IV antibiotics and IV fluids patient febrile overnight with Tmax 101.3. Afebrile today. tachypnea resolved, leukocytosis and tachycardia improving (2) Pyelonephritis: Code(s): N12 - Tubulo-interstitial nephritis, not specified as acute or chronic Status: Acute Assessment and Plan: UA abnormal on presentation with dysuria, abdominal and flank pain. CT of the abdomen/pelvis shows moderate left perinephric and periureteral edema, concerning for ascending urinary tract infection appreciate urology consultation urine culture with growth of >100k Enterococcus continue IV ampicillin Zosyn discontinued on 12/20/21 (3) Acute kidney injury: Code(s): N17.9 - Acute kidney failure, unspecified Status: Acute Assessment and Plan: Secondary to urinary retention and sepsis. Owens catheter initiated 12/19 to allow for maximum drainage of urinary tract and avoid reflux continue gentle IV fluids renal ultrasound revealed bilateral nephrolithiasis without hydronephrosis empagliflozin-metformin and losartan on hold monitor BMP creatinine improved to 1.3 today (4) Urinary retention: Code(s): R33.9 - Retention of urine, unspecified Status: Acute Assessment and Plan: Patient required straight catheterization in the emergency department but subsequently has voided independently. per Urology recommendations, Owens catheter has been initiated to allow appropriate drainage in the setting of acute infection monitor urine output plan for voiding trial following resolution of fever (5) Elevated LFTs: Code(s): R79.89 - Other specified abnormal findings of blood chemistry Status: Acute Assessment and Plan: Initially felt to be secondary to sepsis LFTs remain persistently elevated slight increase in total bili today to 1.5 hepatitis panel negative (6) Cirrhosis of liver: Code(s): K74.60 - Unspecified cirrhosis of liver Status: Acute Assessment and Plan: RUQ US completed today for full workup of transaminitis revealed cirrhosis of liver Reviewed imaging with radiologists. Evidence of liver disease apparent on old CT as far back as 2017 Patient reports evaluation of abnormal liver findings 5-6 years ago at [facility] but no follow up since that time. Cannot recall specific details or diagnosis Will place consult to gastroenterology for further evaluation Platelet count normal. Will check hepatic panel, PT/INR, and platelets on AM labs Patient reports 1 alcohol drink/month, denies history of heavy alcohol use. (7) Type 2 diabetes mellitus with hyperglycemia: Code(s): E11.65 - Type 2 diabetes mellitus with hyperglycemia Status: Acute Assessment and Plan: A1c is 6.5. blood sugars reasonably controlled, slightly elevated today continue Accu-Cheks, high dose sliding scale insulin, hypoglycemic protocol continue basal insulin oral hypoglycemics on hold. (8) Hypertension: Code(s): I10 - Essential (primary) hypertension Status: Chronic Assessment and Plan: Blood pressures reviewed and have been slightly elevated in the 160s-170s systolic today. continue home amlodipine. home losartan on hold while monitoring renal function orthostatic vital signs negative monitor BP trends prn hydralazine for systlic BP >170 Subjective Date/time seen: 12/21/21 15:27 Interval history: date of service: 12/21/2021 Eduardo Jaffe is
[2021-12-21 16:36] LABS: Glucose Point of Care 71 mg/dl (65-105)
[2021-12-21] MEDS: AMPICILLIN 1 GM/NS 50 ML 1 GM/50 ML BAG IVPB (20:03)
[2021-12-21] MEDS: LATANOPROST 0.005% OP SOLN 2.5 ML BTL 1 DROP EACH EYE (20:03)
[2021-12-21 21:17] LABS: Glucose Point of Care 109 mg/dl (65-105)
[2021-12-22] VITALS (9 sets, daily range): BP systolic 122–186; BP diastolic 72–96; PULSE 93–114; RESP 16–18; TEMP 36.1–37; O2SAT 92–99
[2021-12-22] MEDS: SODIUM CHLORIDE 0.9% IV 1,000 ML 150 ML IV CONT ×2 (00:15→05:58)
[2021-12-22] MEDS: AMPICILLIN 1 GM/NS 50 ML 1 GM/50 ML BAG IVPB ×4 (01:00→17:44)
[2021-12-22] MEDS: oxyCODONE/ACETAMINOPHEN (*CRX) 5-325 MG TABLET 1 TABLET PO ×2 (03:03→08:28)
[2021-12-22 06:25] LABS: Hemoglobin 13.7 g/dL (14.0-18.0); Mean Corpuscular HGB Conc 32.6 g/dl (32-36); Mean Corpuscular Hemoglobin 28.5 pg (26-34); Mean Corpuscular Volume 87.3 fl (80-100); Mean Platelet Volume 10.5 fl (7.4-10.4); Platelet Count Result 211 k/mm3 (150-375); Red Blood Count 4.81 M/mm3 (4.6-6.20); Red Cell Distribution Width 13.5 % (11.5-14.5); White Blood Count 11.3 K/mm3 (4.5-10.0)
[2021-12-22 06:30] LABS: Alanine Aminotransferase 267 U/L (6-50); Albumin Level 3.1 g/dL (3.5-5.1); Alkaline Phosphatase 320 U/L (38-126); Anion Gap 8 mmol/L (8-16); Aspartate Amino Transferase 152 U/L (17-59); Blood Urea Nitrogen 22 mg/dL (9-20); Calcium 7.9 mg/dL (8.4-10.2); Carbon Dioxide 23 mmol/L (22-30); Chloride 101 mmol/L (98-107); Estimated CRCL calculation 126 ml/min; Estimated Glomerular Filt Rate > 60; Glucose 137 mg/dL (65-110); Potassium 3.9 mmol/L (3.4-5.0); Sodium 132 mmol/L (137-145)
[2021-12-22 07:18] LABS: INR 1.2; Prothrombin Time 14.7 Seconds (11.1-14.7)
[2021-12-22 08:21] LABS: Glucose Point of Care 176 mg/dl (65-105)
[2021-12-22] MEDS: amLODIPine BESYLATE 5 MG TABLET PO (08:29)
--- NOTE | 2021-12-22 11:07 | WPDUROPN2 ---
Progress Note: A&P Assessment and Plan (1) History of kidney stones: Code(s): Z87.442 - Personal history of urinary calculi Status: Acute Assessment and Plan: CT shows bilateral non obstructive stones visible on KUB. Those could be removed via ESWL at some point outpatient after he heals from this hospitalization. No evaluation needed at this time. A 3mm right UVJ stone has passed that was previously seen in the ureter on 12/18/21. (2) Urinary retention: Code(s): R33.9 - Retention of urine, unspecified Status: Acute Assessment and Plan: Remove kendall catheter today and do a voiding trial. Call the office with results. (3) Acute kidney injury: Code(s): N17.9 - Acute kidney failure, unspecified Status: Acute Assessment and Plan: Resolved creatinine is normal at 0.90. (4) Pyelonephritis: Code(s): N12 - Tubulo-interstitial nephritis, not specified as acute or chronic Status: Acute Assessment and Plan: He is currently on culture sensitive Ampicillin, recommend oral Ampicillin or Nitrofurantoin for discharge orally. (5) Sepsis: Code(s): A41.9 - Sepsis, unspecified organism Status: Acute Assessment and Plan: Condition Improved (6) History of ureter stent: Status: Acute Assessment and Plan: Left stent in place on CT scan, he will f/u in one week for stent removal in the office with DR. Lazcano. NO further evaluation at this time. Ok to discharge at anytime per urology. Subjective Subjective Date/Time Seen: 12/22/21 11:07 12/08/21 Cystoscopy, left ureteral stent placement, left retrograde pyelogram, left ureteral stone extraction, laser lithotripsy. Urine culture growing Enterococcus, patient doing well on Ampicillin which was culture sensitive and is currently afebrile. He is very bothered by his catheter. He had a repeat CT per Dr. Lazcano request on 12/18/21 which showed an incidental 3mm right UVJ stone and bilateral non obstructive stones. He is having no pain in the right flank or abdomen today. I repeated another CT to ensure passage of his 3mm stone which his CT today does confirm and shows it in the bladder. Review of Systems Cardiovascular: Cardiovascular: Denies chest pain Gastrointestinal: Gastrointestinal: Denies abdominal pain, Denies nausea and Denies vomiting Genitourinary: Genitourinary: Denies hematuria, Reports genital pain and Denies flank pain Exam Resp: Effort & Inspection: normal respiratory effort Cardio: Rate: regular rate GI: GI Palp: Yes Soft to palpation and No Tenderness to palpation present (GI) : General: Yes no CVA tenderness Penis: Yes normal penis and Yes other (tender at meatus from catheter) Urinary Catheter: Urinary Catheter: patent and draining and urine clear Extrem: Right lower extremity: no edema Left lower extremity: no edema Objective Data Vital Signs Vital Signs: Vital Signs - 24 hr 12/21/21 13:54 12/21/21 15:09 12/21/21 15:09 Temperature 97.4 F L Pulse Rate 94 Respiratory Rate 16 Blood Pressure 164/86 H 170/87 H 169/89 H Pulse Oximetry 94 Oxygen Delivery 12/21/21 20:00 12/21/21 20:00 12/21/21 22:00 Temperature 98.6 F 98.6 F Pulse Rate 88 88 Respiratory Rate 18 18 Blood Pressure 153/84 H 153/84 H Pulse Oximetry 94 94 Oxygen Delivery Room Air 12/21/21 20:05 12/21/21 20:10 12/22/21 06:00 Temperature 98.6 F 97.5 F L 98.6 F Pulse Rate 90 100 93 Respiratory Rate 18 20 18 Blood Pressure 158/77 H 157/87 H 138/83 Pulse Oximetry 93 97 94 Oxygen Delivery 12/22/21 08:30 12/22/21 09:30 12/22/21 09:35 Temperature Pulse Rate 105 H 114 H Respiratory Rate Blood Pressure 182/94 H 183/90 H Pulse Oximetry 94 94 Oxygen Delivery Room Air 12/22/21 09:40 Temperature Pulse Rate 107 H Respiratory Rate Blood Pressure 186/88 H Pulse Oximetry 97 Oxygen Delivery Intake/Output Intake/Output: Intake &
[2021-12-22 11:26] LABS: Glucose Point of Care 250 mg/dl (65-105)
--- NOTE | 2021-12-22 12:32 | PC.NURSE ---
Patient's Humulin R U-500 pen is empty and has no refills. 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 I notified Jaylin about this earlier this morning. PA stated she would call our pharmacist. I called PA around lunch time to let her know that the patient's current blood sugar is 250. PA called our pharmacy. Re-verified home dose of insulin with the patient and his . They stated that his home insulin dose of Humulin R U-500 200 units SUBQ daily is correct. Patient has also received this dose the past 3 days. PA questioned thread pulling machine attendant, I asked patient & , MD office was called, and a script of his insulin pen is being sent to [facility] in [place] rather than e-script. Concerned about cost of insulin pen at local pharmacy. Patient stated he will call the pharmacy and question cost and availability. stated she could pick it up today if cost is reasonable and it's available. Will let PA know what the patient finds out. For now, I will administer one time dose of Human Regular 100 units SUBQ per PA order.
[2021-12-22] MEDS: INSULIN HUMAN REGULAR (*BKC) 100 UNITS/ML SUB-Q (12:53)
[2021-12-22 13:56] LABS: Glucose Point of Care 276 mg/dl (65-105)
--- NOTE | 2021-12-22 14:05 | WPDGICN ---
Assessment and Plan Assessment and plan (1) Cirrhosis of liver: Code(s): K74.60 - Unspecified cirrhosis of liver Status: Acute Assessment and Plan: new diagnosis, I wonder if probably marroquin related (risk factors obesity, dm, htn, hyperlipidemia) but will complete work up to rule out other chronic liver conditions- blood work ordered but he does not need to stay in hospital he will need EGD as outpatient to assess if varices or phg (he remembers having egd but years ago) also will need liver ultrasound every 6 months for hcc surveillance low salt diet (noted some leg edema) (2) Transaminitis: Code(s): R74.01 - Elevation of levels of liver transaminase levels Status: Acute Assessment and Plan: probably from cirrhosis monitor as outpatient (3) Type 2 diabetes mellitus with hyperglycemia: Code(s): E11.65 - Type 2 diabetes mellitus with hyperglycemia Status: Acute (4) Pyelonephritis: Code(s): N12 - Tubulo-interstitial nephritis, not specified as acute or chronic Status: Acute Assessment and Plan: treated and improved (5) Sepsis: Code(s): A41.9 - Sepsis, unspecified organism Status: Acute (6) History of ureter stent: Status: Acute (7) Urinary retention: Code(s): R33.9 - Retention of urine, unspecified Status: Acute Assessment and Plan: resolved also MARCY improved (8) Colon cancer screening: Code(s): Z12.11 - Encounter for screening for malignant neoplasm of colon Status: Acute Assessment and Plan: will set up colonoscopy as outpatient (never had one) (9) Obesity, morbid, BMI 40.0-49.9: Code(s): E66.01 - Morbid (severe) obesity due to excess calories Status: Acute Assessment and Plan: will need lose some weight at least 5% GI Consult Note Consult date/time: 12/22/21 14:05 Reason for consult: new diagnosis of cirrhosis HPI: Eduardo Jaffe is a 56 year old male with history of kidney stones, insulin-dependent diabetes, hypertension, obesity (BMI 42) and dyslipidemia who came to the emergency department via EMS after had fever and abdominal pain few days ago. He was just in the hospital between 12/07 and 12/09/2021 for a left mid ureteral calculus with hydronephrosis after presenting with abdominal pain and underwent cystoscopy with left retrograde pyelogram and left ureteroscopy with holmium laser of renal calculi and UPJ stone with left ureteral stent placement and discharged with ciprofloxacin which he did complete. He came here with fever, more abdominal discomfort, nausea and vomiting, dysuria and generalized weakness with near fall. CT scan reviewed and showed moderate left perinephric and periureteral edema suspicious for ascending urinary tract infection in the setting [place] [address], also noted cirrhosis (normal bile duct, post cholecystectomy), had elevated transaminases. On iv antibiotics and doing much better now. He denies history of hepatitis, alcohol abuse but remembers few years ago seeing someone in [facility] because elevated liver enzymes. Hepatitis penal negative. Review of Systems Constitutional: Constitutional: Reports chills Eyes: Eyes: Denies blurry vision ENT: Reports Normal hearing present Cardiovascular: Cardiovascular: Denies chest pain Respiratory: Respiratory: Denies cough Gastrointestinal: Gastrointestinal: Reports abdominal pain Genitourinary: Genitourinary: Reports dysuria and Reports flank pain Musculoskeletal: Musculoskeletal: Reports myalgias Integumentary/Breasts: Skin/Breast: Denies rash Neurologic: Denies Abnormal speech present Psychiatric: Psychiatric: Denies confusion [facility] Past Medical History Medical History (Updated 12/22/21 @ 14:14 by Adelfo Morrow MD) Colon cancer screening Glaucoma Hypertension Kidney stones Obesity, morbid, BMI 40.0-49.9 Type 2 diabetes mellitus Surgical Hist
--- NOTE | 2021-12-22 15:25 | P.PNIM_ITS ---
Progress Note: A&P Assessment and Plan (1) Sepsis: Code(s): A41.9 - Sepsis, unspecified organism Status: Acute Assessment and Plan: Present on admission and supported by low-grade fever, tachycardia, tachypnea, leukocytosis, lactic acidosis, transaminitis, and acute kidney injury in the setting of pyelonephritis. * blood cultures pending, negative to date * monitor vital signs, urine output, labs * continue IV antibiotics * tachypnea resolved, leukocytosis and tachycardia improved. Afebrile >24 hours (2) Pyelonephritis: Code(s): N12 - Tubulo-interstitial nephritis, not specified as acute or chronic Status: Acute Assessment and Plan: UA abnormal on presentation with dysuria, abdominal and flank pain. * CT of the abdomen/pelvis shows moderate left perinephric and periureteral edema, concerning for ascending urinary tract infection * appreciate urology consultation * urine culture with growth of >100k Enterococcus * continue IV ampicillin (3) Acute kidney injury: Code(s): N17.9 - Acute kidney failure, unspecified Status: Acute Assessment and Plan: Secondary to urinary retention and sepsis. * Owens catheter initiated 12/19 to allow for maximum drainage of urinary tract and avoid reflux * renal function improved with IV fluid * renal ultrasound revealed bilateral nephrolithiasis without hydronephrosis * empagliflozin-metformin and losartan held due to MARCY, will resume at this time * creatinine has normalized. 0.9 today * monitor BMP (4) Urinary retention: Code(s): R33.9 - Retention of urine, unspecified Status: Acute Assessment and Plan: noted on admission * Owens catheter removed today and patient has been able to void independently * monitor urine output (5) Elevated LFTs: Code(s): R79.89 - Other specified abnormal findings of blood chemistry Status: Acute Assessment and Plan: Initially felt to be secondary to sepsis * LFTs remain persistently elevated * total bili is normal * hepatitis panel negative * LFTs trending down today (6) Cirrhosis of liver: Code(s): K74.60 - Unspecified cirrhosis of liver Status: Acute Assessment and Plan: RUQ US completed for full workup of transaminitis revealed cirrhosis of liver * Reviewed imaging with radiologists. Evidence of liver disease apparent on old CT as far back as 2017 * Patient reports evaluation of abnormal liver findings 5-6 years ago at [facility] but no follow up since that time. Cannot recall specific details or diagnosis * Appreciate gastroenterology consultation * Platelet count, INR, bilirubin normal * Additional laboratory workup per GI is pending. * Will need outpatient follow up for ultrasounds every 6 months for HCC surveillance as well as eventual EGD * Low sodium diet (7) Type 2 diabetes mellitus with hyperglycemia: Code(s): E11.65 - Type 2 diabetes mellitus with hyperglycemia Status: Acute Assessment and Plan: A1c is 6.5. Blood sugars have been well controlled during admission * home insulin regimen consist 200 units Humulin R U-500 daily. This is nonformulary, therefore patient had been receiving home insulin during admission. Unfortunately has run out of home insulin today * Patient's insulin refill is currently in the mail with [facility] and not expected to arrive until 12/25-12/26. Not able to obtain refill at [facility] pharmacy due to cost. At this time he has no home insulin * Spoke with patient'
--- NOTE | 2021-12-22 15:25 | PM.IMPN ---
Progress Note: A&P Assessment and Plan (1) Sepsis: Code(s): A41.9 - Sepsis, unspecified organism Status: Acute Assessment and Plan: Present on admission and supported by low-grade fever, tachycardia, tachypnea, leukocytosis, lactic acidosis, transaminitis, and acute kidney injury in the setting of pyelonephritis. blood cultures pending, negative to date monitor vital signs, urine output, labs continue IV antibiotics tachypnea resolved, leukocytosis and tachycardia improved. Afebrile >24 hours (2) Pyelonephritis: Code(s): N12 - Tubulo-interstitial nephritis, not specified as acute or chronic Status: Acute Assessment and Plan: UA abnormal on presentation with dysuria, abdominal and flank pain. CT of the abdomen/pelvis shows moderate left perinephric and periureteral edema, concerning for ascending urinary tract infection appreciate urology consultation urine culture with growth of >100k Enterococcus continue IV ampicillin (3) Acute kidney injury: Code(s): N17.9 - Acute kidney failure, unspecified Status: Acute Assessment and Plan: Secondary to urinary retention and sepsis. Owens catheter initiated 12/19 to allow for maximum drainage of urinary tract and avoid reflux renal function improved with IV fluid renal ultrasound revealed bilateral nephrolithiasis without hydronephrosis empagliflozin-metformin and losartan held due to MARCY, will resume at this time creatinine has normalized. 0.9 today monitor BMP (4) Urinary retention: Code(s): R33.9 - Retention of urine, unspecified Status: Acute Assessment and Plan: noted on admission Owens catheter removed today and patient has been able to void independently monitor urine output (5) Elevated LFTs: Code(s): R79.89 - Other specified abnormal findings of blood chemistry Status: Acute Assessment and Plan: Initially felt to be secondary to sepsis LFTs remain persistently elevated total bili is normal hepatitis panel negative LFTs trending down today (6) Cirrhosis of liver: Code(s): K74.60 - Unspecified cirrhosis of liver Status: Acute Assessment and Plan: RUQ US completed for full workup of transaminitis revealed cirrhosis of liver Reviewed imaging with radiologists. Evidence of liver disease apparent on old CT as far back as 2018 Patient reports evaluation of abnormal liver findings 5-6 [facility] ago [facility] but no follow up since that time. Cannot recall specific details or diagnosis Appreciate gastroenterology consultation Platelet count, INR, bilirubin normal Additional laboratory workup per GI is pending. Will need outpatient follow up for ultrasounds every 6 months for HCC surveillance as well as eventual EGD Low sodium diet (7) Type 2 diabetes mellitus with hyperglycemia: Code(s): E11.65 - Type 2 diabetes mellitus with hyperglycemia Status: Acute Assessment and Plan: A1c is 6.5. Blood sugars have been well controlled during admission home insulin regimen consist 200 units Humulin R U-500 daily. This is nonformulary, therefore patient had been receiving home insulin during admission. Unfortunately has run out of home insulin today Patient's insulin refill is currently in the mail with [facility] and not expected to arrive until 12/25-12/26. Not able to obtain refill at [facility] pharmacy due to cost. At this time he has no home insulin Spoke with patient's sourcing specialist at [facility], Dr. Cummins for recommendations. Awaiting return call. At this time will continue with Novolin R U-100 100 units daily. (Per pharmacy, this is the max dose that can be given based on insulin formulary and subcutaneous dosing restrictions). Aware that this is decreased from his home insulin Close monitoring of blood sugars. Adjust insulin regimen as needed while awaiting endocrinology recommendations co
[2021-12-22 15:51] LABS: Iron 28 ug/dL (49-181)
[2021-12-22] MEDS: LOSARTAN POTASSIUM 100 MG TABLET PO (15:57)
[2021-12-22 16:00] LABS: Percent Iron Saturation 14 % (20-50)
[2021-12-22 17:27] LABS: Glucose Point of Care 178 mg/dl (65-105)
[2021-12-22] MEDS: oxyCODONE/ACETAMINOPHEN (*CRX) 10-325 MG TABLET 1 TAB PO (17:51)
[2021-12-22] MEDS: LORATADINE 10 MG TABLET PO (18:35)
[2021-12-22] MEDS: LATANOPROST 0.005% OP SOLN 2.5 ML BTL 1 DROP EACH EYE (20:00)
[2021-12-22] MEDS: FLUTICASONE PROPIONATE 0.05% NA SPR 16 GM BTL (*BKC) 1 SPRAY NASAL (20:00)
[2021-12-22 22:08] LABS: Glucose Point of Care 187 mg/dl (65-105)
[2021-12-23] MEDS: oxyCODONE/ACETAMINOPHEN (*CRX) 10-325 MG TABLET 1 TAB PO (00:32)
[2021-12-23] MEDS: AMPICILLIN 1 GM/NS 50 ML 1 GM/50 ML BAG IVPB ×2 (00:33→06:02)
[2021-12-23 06:00] VITALS: BP 178/88; PULSE 97; RESP 16; TEMP 36; O2SAT 95
[2021-12-23 06:37] VITALS: PULSE 97
[2021-12-23] MEDS: LABETALOL HCL INJ 100 MG/20 ML VIAL 10 MG IV PUSH (06:37)
[2021-12-23 07:30] LABS: Glucose Point of Care 153 mg/dl (65-105)
[2021-12-23 07:56] VITALS: PULSE 92; O2SAT 95
[2021-12-23 08:00] VITALS: PULSE 95; RESP 16; O2SAT 95
[2021-12-23] MEDS: FLUTICASONE PROPIONATE 0.05% NA SPR 16 GM BTL (*BKC) 1 SPRAY NASAL (08:14)
[2021-12-23] MEDS: amLODIPine BESYLATE 5 MG TABLET PO (08:14)
[2021-12-23] MEDS: LOSARTAN POTASSIUM 100 MG TABLET PO (08:15)
[2021-12-23 08:19] VITALS: BP 158/73; PULSE 95
[2021-12-23 09:06] LABS: Hematocrit 44.4 % (42.0-52.0); Hemoglobin 14.6 g/dL (14.0-18.0); Mean Corpuscular HGB Conc 32.9 g/dl (32-36); Mean Corpuscular Hemoglobin 28.9 pg (26-34); Mean Corpuscular Volume 87.9 fl (80-100); Mean Platelet Volume 10.3 fl (7.4-10.4); Platelet Count Result 205 k/mm3 (150-375); Red Blood Count 5.05 M/mm3 (4.6-6.20); Red Cell Distribution Width 13.5 % (11.5-14.5)
[2021-12-23 09:34] LABS: Anion Gap 11 mmol/L (8-16); Blood Urea Nitrogen 16 mg/dL (9-20); Calcium 8.8 mg/dL (8.4-10.2); Carbon Dioxide 26 mmol/L (22-30); Chloride 95 mmol/L (98-107); Estimated CRCL calculation 126 ml/min; Estimated Glomerular Filt Rate > 60; Glucose 199 mg/dL (65-110); Potassium 3.6 mmol/L (3.4-5.0); Sodium 132 mmol/L (137-145)
--- NOTE | 2021-12-23 10:16 | PC.NURSE ---
sariah Mosqueda held 100 u insulin r.t bs 153
[2021-12-23] MEDS: AMPICILLIN TRIHYDRATE 500 MG CAPSULE PO (10:30)
[2021-12-23 10:36] LABS: Glucose Point of Care 250 mg/dl (65-105)
[2021-12-23] MEDS: INSULIN HUMAN REGULAR (*BKC) 100 UNITS/ML SUB-Q (10:36)
--- NOTE | 2021-12-23 10:38 | PC.NURSE ---
home medication sent to pharmacy to get verified.
--- NOTE | 2021-12-23 11:05 | PHAR ---
HOME MEDS VERIFIED RYBELSUS 14MG TABLET TAKE 1 TABLET DAILY SYNJARDY XR 12.09/999 1 TABLET BID
[2021-12-23 11:12] LABS: Glucose Point of Care 243 mg/dl (65-105)
--- NOTE | 2021-12-23 12:14 | P.DS_ITS ---
DS: Admitting Diagnosis Discharge Date 12/23/2021 Admitting Diagnosis pyelonephritis DS: Discharge Diagnosis Discharge Diagnosis (1) Sepsis: Code(s): A41.9 - Sepsis, unspecified organism Status: Acute Assessment and Plan: Present on admission and supported by low-grade fever, tachycardia, tachypnea, leukocytosis, lactic acidosis, transaminitis, and acute kidney injury in the setting of pyelonephritis. * Preliminary blood cultures negative to date after 6 days * Managed with IV antibiotics * Sepsis resolved. (2) Pyelonephritis: Code(s): N12 - Tubulo-interstitial nephritis, not specified as acute or chronic Status: Acute Assessment and Plan: UA abnormal on presentation with dysuria, abdominal and flank pain. * CT of the abdomen/pelvis shows moderate left perinephric and periureteral edema, concerning for ascending urinary tract infection * Initially treated with IV Zosyn which was discontinued on 12/20 * Urine culture with growth of >100k Enterococcus * Transitioned to IV ampicillin which was appropriate based on susceptibility report * Will continue PO ampicillin on discharge for 10 days * Follow up with urology in 1 week (3) Acute kidney injury: Code(s): N17.9 - Acute kidney failure, unspecified Status: Acute Assessment and Plan: Secondary to urinary retention and sepsis. * Kendall catheter initiated 12/19 to allow for maximum drainage of urinary tract and avoid reflux * Renal function improved with IV fluid and kendall * renal ultrasound revealed bilateral nephrolithiasis without hydronephrosis * empagliflozin-metformin and losartan held due to MARCY. Resumed following resolution of MARCY * creatinine normalized (4) Urinary retention: Code(s): R33.9 - Retention of urine, unspecified Status: Acute Assessment and Plan: noted on admission * Kendall catheter initiated on admission * Removed on 12/22 with successful voiding trial * No further issues with retention * Urine output monitored and was adequate (5) Elevated LFTs: Code(s): R79.89 - Other specified abnormal findings of blood chemistry Status: Acute Assessment and Plan: Initially felt to be secondary to sepsis * LFTs remained elevated * total bili is normal * hepatitis panel negative * hold statin due to transaminitis * see below (6) Cirrhosis of liver: Code(s): K74.60 - Unspecified cirrhosis of liver Status: Acute Assessment and Plan: RUQ US completed for full workup of transaminitis revealed cirrhosis of liver * Reviewed imaging with radiologists. Evidence of liver disease apparent on old CT as far back as 2018 * Patient reports evaluation of abnormal liver findings 5-6 years ago at [facility] but no follow up since that time. Cannot recall specific details or diagnosis * Seen in consultation by Gastroenterology * Platelet count, INR, bilirubin normal * Additional laboratory workup per GI is pending. Will follow up outpatient to review results * Will need outpatient follow up for ultrasounds every 6 months for HCC surveillance as well as eventual EGD * Low sodium diet (7) Type 2 diabetes mellitus with hyperglycemia: Code(s): E11.65 - Type 2 diabetes mellitus with hyperglycemia Status: Acute Assessment and Plan: A1c is 6.5. Blood sugars were well controlled during admission * Home insulin regimen consists of 200 units Humulin R U-500 daily. This is nonformulary, therefore patient had been receiving his ho
--- NOTE | 2021-12-23 12:14 | PM.DS ---
DS: Admitting Diagnosis Discharge Date 12/23/2021 Admitting Diagnosis pyelonephritis DS: Discharge Diagnosis Discharge Diagnosis (1) Sepsis: Code(s): A41.9 - Sepsis, unspecified organism Status: Acute Assessment and Plan: Present on admission and supported by low-grade fever, tachycardia, tachypnea, leukocytosis, lactic acidosis, transaminitis, and acute kidney injury in the setting of pyelonephritis. Preliminary blood cultures negative to date after 6 days Managed with IV antibiotics Sepsis resolved. (2) Pyelonephritis: Code(s): N12 - Tubulo-interstitial nephritis, not specified as acute or chronic Status: Acute Assessment and Plan: UA abnormal on presentation with dysuria, abdominal and flank pain. CT of the abdomen/pelvis shows moderate left perinephric and periureteral edema, concerning for ascending urinary tract infection Initially treated with IV Zosyn which was discontinued on 12/20 Urine culture with growth of >100k Enterococcus Transitioned to IV ampicillin which was appropriate based on susceptibility report Will continue PO ampicillin on discharge for 10 days Follow up with urology in 1 week (3) Acute kidney injury: Code(s): N17.9 - Acute kidney failure, unspecified Status: Acute Assessment and Plan: Secondary to urinary retention and sepsis. Kendall catheter initiated 12/19 to allow for maximum drainage of urinary tract and avoid reflux Renal function improved with IV fluid and kendall renal ultrasound revealed bilateral nephrolithiasis without hydronephrosis empagliflozin-metformin and losartan held due to MARCY. Resumed following resolution of MARCY creatinine normalized (4) Urinary retention: Code(s): R33.9 - Retention of urine, unspecified Status: Acute Assessment and Plan: noted on admission Kendall catheter initiated on admission Removed on 12/22 with successful voiding trial No further issues with retention Urine output monitored and was adequate (5) Elevated LFTs: Code(s): R79.89 - Other specified abnormal findings of blood chemistry Status: Acute Assessment and Plan: Initially felt to be secondary to sepsis LFTs remained elevated total bili is normal hepatitis panel negative hold statin due to transaminitis see below (6) Cirrhosis of liver: Code(s): K74.60 - Unspecified cirrhosis of liver Status: Acute Assessment and Plan: RUQ US completed for full workup of transaminitis revealed cirrhosis of liver Reviewed imaging with radiologists. Evidence of liver disease apparent on old CT as far back as 2017 Patient reports evaluation of abnormal liver findings 5-6 [facility] ago [facility] but no follow up since that time. Cannot recall specific details or diagnosis Seen in consultation by Gastroenterology Platelet count, INR, bilirubin normal Additional laboratory workup per GI is pending. Will follow up outpatient to review results Will need outpatient follow up for ultrasounds every 6 months for HCC surveillance as well as eventual EGD Low sodium diet (7) Type 2 diabetes mellitus with hyperglycemia: Code(s): E11.65 - Type 2 diabetes mellitus with hyperglycemia Status: Acute Assessment and Plan: A1c is 6.5. Blood sugars were well controlled during admission Home insulin regimen consists of 200 units Humulin R U-500 daily. This is nonformulary, therefore patient had been receiving his home insulin during admission. Unfortunately, on 12/22/21 he ran out of insulin. Refill is currently in the mail with [facility] and not expected to arrive until 12/25-12/26/21. Not able to obtain refill at [facility] pharmacy due to cost. Spoke with patient's multiple drill operator at [facility], Dr. Cummins for recommendations. During admission was transitioned to Novolin R U-100 100 units daily. (Per pharmacy, this is the max dose that can be given bas
[2021-12-23] MEDS: INSULIN ASPART (*BKC) 100 UNITS/ML SUB-Q (12:15)
--- NOTE | 2021-12-23 12:40 | PC.NURSE ---
home medication returned prior to discharging
[2021-12-24 23:21] LABS: Mitochondrial (M2) Ab (IgG) <=20.0 U (<=20.0)
[2021-12-25 21:40] LABS: Ceruloplasmin 41 mg/dL (18-36)
[2021-12-29 07:19] LABS: Anti Nuclear Antibody Pattern Nuclear, Speckled; Anti Nuclear Antibody Titer 1:40 (Negative)
== END 2021-12-23 12:35 | disposition home or self-care (01) | DRG 872 ==
LOC: ANHED 16:55 → ANH3MEDSUR 18:45
PROVIDERS: Internal Medicine Gastroenterology; Physician Assistant; Admitting Provider Chiropractor; Emergency Provider Preventive Medicine Aerospace Medicine; Visit Provider Physician Assistant
DX: A41.9 Sepsis, unspecified organism (principal); N10 Acute pyelonephritis; N17.9 Acute kidney failure, unspecified; Z68.41 Body mass index [BMI] 40.0-44.9, adult; B95.2 Enterococcus as the cause of diseases classified elsewhere; K74.60 Unspecified cirrhosis of liver; K75.81 Nonalcoholic steatohepatitis (NASH); R33.9 Retention of urine, unspecified; E11.65 Type 2 diabetes mellitus with hyperglycemia; E66.01 Morbid (severe) obesity due to excess calories; E78.5 Hyperlipidemia, unspecified; H40.9 Unspecified glaucoma; N20.0 Calculus of kidney; I10 Essential (primary) hypertension; K59.00 Constipation, unspecified; R60.0 Localized edema; R79.89 Other specified abnormal findings of blood chemistry; Z87.442 Personal history of urinary calculi; Z79.84 Long term (current) use of oral hypoglycemic drugs; Z79.4 Long term (current) use of insulin; Z90.49 Acquired absence of other specified parts of digestive tract; Z96.0 Presence of urogenital implants
CPT/HCPCS: 36415; 51701; 74176; 76705; 76775; 80048; 80053; 80074; 80076; 81001; 82104; 82390; 82728; 82948; 83520; 83540; 83550; 83605; 83690; 83735; 85025; 85027; 85610; 86038; 86039; 87040; 87077; 87086; 87088; 87186; 96361; 96365; 96366; 96367; 96375; 96376; 97116; 97161; 97165; 99285; A9270; G0378; J0131; J0290; J0295; J0696; J0780; J1170; J1815; J2270; J2405; J2543; J7030

== ENCOUNTER 2021-12-29 11:48 | Observation (INO) | payer BC, SELFPAY ==
[2021-12-29] VITALS (15 sets, daily range): BP systolic 106–140; BP diastolic 55–87; PULSE 99–106; RESP 16–28; TEMP 35.7–36.7; O2SAT 89–98; BMI 42.0
--- NOTE | 2021-12-29 | ECHO_ITS ---
Patient Info Name: Eduardo Jaffe Age: 56 years : 1965 Gender: Male Ht: 74 in Wt: 329 lbs BSA: 2.85 m2 HR: 103 bpm BP: 138 / 87 mmHg Heart Rhythm: Sinus Rhythm, Tachycardia Technical Quality: Fair Exam Date: 12/29/2021 5:09 PM Exam Location: [facility] Patient Status: Emergency Admit Date: 12/29/2021 Staff Ordering Physician: Andres Orr MD Hose Inspector And Patcher: Juju Conway RDCS Attending Provider: Andres Orr MD Referring Physician: Kirby BANGURA; Exam Type: CA echo doppler color flow Study Info Indications - CHF/PE Complete two-dimensional, color flow and Doppler transthoracic echocardiogram is performed with contrast to opacify the left ventricle and to improve the deliniation of the left ventricle endocardial borders. Contrast/Agitated Saline Contrast/Ag. Saline: Definity Amount: 3.00 ml Administered By: Juju Conway RDCS Existing IV Access: Yes IV Access Condition: patent with no signs of infiltration Summary 1. Left ventricular chamber dimension is normal. 2. Left ventricular systolic function is normal, estimated at 55-60%. 3. There is mildly increased left ventricular wall thickness. 4. The left ventricular diastolic function is grade I diastolic dysfunction. 5. Flattening of the septum in diastole consistent with right ventricular volume overload. 6. Right ventricular chamber dimension is moderately enlarged. 7. Right ventricular systolic function is reduced. TAPSE 1.3. 8. Right atrial chamber dimension is severely enlarged. 9. There is trace tricuspid valve regurgitation. 10. No pulmonary hypertension, estimated pulmonary arterial systolic pressure is 29 mmHg. 11. Dilated inferior vena cava with no collapse upon inspiration consistent with significantly elevated right atrial pressure, 15 mmHg. Left Ventricle Left ventricular chamber dimension is normal. Left ventricular systolic function is normal, estimated at 55-60%. There is mildly increased left ventricular wall thickness. The left ventricular diastolic function is grade I diastolic dysfunction. Flattening of the septum in diastole consistent with right ventricular volume overload. Right Ventricle Right ventricular chamber dimension is moderately enlarged. Right ventricular systolic function is reduced. TAPSE 1.3. Left Atria Left atrial chamber dimension is normal. Right Atria Right atrial chamber dimension is severely enlarged. Aortic Valve The aortic valve is not well visualized. There is no aortic valve stenosis. There is no aortic valve regurgitation. Pulmonic Valve The pulmonic valve is not well visualized. Mitral Valve The mitral valve has not well visualized. There is no mitral valve regurgitation. The mitral valve annulus is mildly calcified. Tricuspid Valve The tricuspid valve leaflets are normal. There is trace tricuspid valve regurgitation. No pulmonary hypertension, estimated pulmonary arterial systolic pressure is 29 mmHg. Pericardium/Pleural The pericardium appears normal. There is trivial pericardial effusion. Inferior Vena Cava Dilated inferior vena cava with no collapse upon inspiration consistent with significantly elevated right atrial pressure, 15 mmHg. Aorta The aortic root size at the sinus of Valsalva is normal. The prox ascending aorta size is normal. Left Ventricular Outflow Tract
--- NOTE | ~2021-12-29 | CT_ITS ---
EXAMINATION: CT abdomen pelvis wo con DATE: 12/29/2021 14:22 INDICATION: Lower abdominal pain and renal failure TECHNIQUE: Computed tomography (CT) of the abdomen and pelvis was performed without intravenous contr ast. Automated exposure control and iterative reconstruction technique were employed. The dose-length product was 1514.07 mGy-cm. COMPARISON: 12/22/2021 FINDINGS: Mild discoid atelectasis/scarring in the lingula and right middle lobe. A couple calcified left lower lobe nodules along with numerous small hepatic and splenic calcific lesions consistent with old gran ulomatous disease. Heart size is normal. No pericardial or pleural effusion. There is a nodular liver surface consistent with cirrhosis. Cholecystectomy clips the gallbladder fossa. Pancreas and bilater al adrenal glands are normal. Bilateral nephrolithiasis including at least 5 stones in the right kidn ey measuring up to 3 mm and 5 stones in the left kidney, the largest measuring 11 mm in a lower pole calyx. Left internal ureteral stent with loops formed in the renal pelvis and in the bladder. No ston es on either the left or right ureters. No hydronephrosis. Bladder is normal with passage of the smal l stone previously seen in the dependent bladder. Bowels including the appendix are normal. No free i ntraperitoneal gas or fluid. No pathologically enlarged abdominal or pelvic lymphadenopathy. Mild deg enerative skeletal changes in the spine and pelvis. Small bone island at the left greater trochanter. IMPRESSION: 1. Bilateral nonobstructing nephrolithiasis with left internal ureteral stent in expected position. Reviewed, dictated and finalized at location A. IMPRESSION: 1. Bilateral nonobstructing nephrolithiasis with left internal ureteral stent i n expected position.
--- NOTE | ~2021-12-29 | NM_ITS ---
EXAMINATION: NM pulmonary perfusion DATE: 12/29/2021 15:30 INDICATION: Hypoxia TECHNIQUE: 5.27 mCi Tc-99m MAA by intravenous route. Scintigraphic images of the chest were obtained . COMPARISON: Chest radiograph dated 12/29/2021 FINDINGS: There are large perfusion defects involving the basilar segments of the left lower lobe, the lingula, the right upper lobe and superior segment of the right lower lobe with moderate-sized perfusion defe ct at the right middle lobe. No corresponding airspace opacities on the chest radiograph which would render this high probability for pulmonary embolism. IMPRESSION: 1. High probability for pulmonary embolism, likely with extensive clot burden. Dr. Villa discusse d these findings with Dr. Orr at 3:45 PM. Reviewed, dictated and finalized at location A. IMPRESSION: 1. High probability for pulmonary embolism, likely with extensive clot burden. Dr. Villa discussed these findings with Dr. Orr at 3:45 PM.
--- NOTE | ~2021-12-29 | XR_ITS ---
EXAMINATION: XR chest 1V portable DATE: 12/29/2021 13:34 INDICATION: Shortness of breath. Cough. TECHNIQUE: frontal view of the chest was obtained. COMPARISON: None FINDINGS: Mild opacities with bronchial wall thickening in the right infrahilar region. No pleural effusion or pneumothorax. Calcified nodule in the left lower lung zone consistent with old granulomatous disease. The cardiomediastinal silhouette is within normal limits for AP technique. IMPRESSION: 1. Mild opacities with bronchial wall thickening in the right infrahilar region suspicious for bronch itis/early pneumonia or aspiration. Reviewed, dictated and finalized at location A. IMPRESSION: 1. Mild opacities with bronchial wall thickening in the right infrahilar region suspicious for bronchitis/early pneumonia or aspiration.
--- NOTE | ~2021-12-29 | US_ITS ---
EXAMINATION: US venous doppler [facility] DATE: 12/29/2021 17:08 INDICATION: PE . TECHNIQUE: Grayscale images without and with compression and Doppler images of the bilateral lower ex tremity veins were obtained. COMPARISON: None FINDINGS: The right common femoral vein, profunda (deep) femoral vein, femoral vein, popliteal vein, peroneal v ein, posterior tibial veins, and greater saphenous vein are patent. Occlusive thrombus present in the left leg, extending from the proximal femoral vein to the posterior tibial and peroneal veins The left common profunda femoral vein, and greater saphenous vein are mohr nt. IMPRESSION: 1. Occlusive thrombus on the left extending from the proximal femoral vein to the posterior tibial/p eroneal veins. 2. Patent right lower extremity veins. No evidence of deep venous thrombosis. Results reported telephonically to Susy Milligan PA-C by Dr. Castillo at 5:14 PM on 12/29/2021. Reviewed, dictated and finalized at location K. IMPRESSION: 1. Occlusive thrombus on the left extending from the proximal femoral vein to the posterior tibial/peroneal veins. 2. Patent right lower extremity veins. No evidence of deep venous thrombosis. Results reported telephonically to Susy Milligan PA-C by Dr. Castillo at 5:14 PM on 12/29/2021.
[2021-12-29 12:12] LABS: Glucose Point of Care 404 mg/dl (65-105)
[2021-12-29] MEDS: INSULIN HUMAN REGULAR (*BKC) 100 UNITS/ML 15 UNITS IV PUSH (12:27)
[2021-12-29 12:32] LABS: Basophils Absolute Auto 0.1 K/mm3 (0.0-0.1); Basophils Percent Auto 0.6 % (0.2-1.2); Eosinophils Percent Auto 0.1 % (0-4.4); Hematocrit 46.7 % (42.0-52.0); Hemoglobin 15.4 g/dL (14.0-18.0); Immature Granulocyte Absolute 0.56 K/mm3 (0.00-0.031); Immature Granulocyte Percent A 3.1 % (0-0.5); Lymphocytes Absolute Auto 1.82 K/mm3 (0.9-3.2); Lymphocytes Percent Auto 10.1 % (18.3-44.2); Mean Corpuscular Hemoglobin 28.9 pg (26-34); Mean Corpuscular Volume 87.6 fl (80-100); Mean Platelet Volume 11.4 fl (7.4-10.4); Monocytes Absolute Auto 1.1 K/mm3 (0.1-0.6); Monocytes Percent Auto 5.9 % (2.6-8.5); Neutrophils Absolute Auto 14.5 K/mm3 (1.3-6.7); Neutrophils Percent Auto 80.2 % (45.5-73.1); Platelet Count Result 330 k/mm3 (150-375); Red Blood Count 5.33 M/mm3 (4.6-6.20); Red Cell Distribution Width 13.9 % (11.5-14.5); White Blood Count 18.1 K/mm3 (4.5-10.0)
[2021-12-29] MEDS: MORPHINE SULFATE (*CRX) 4 MG/ML INJ IV PUSH ×2 (12:50→16:02)
[2021-12-29] MEDS: ONDANSETRON INJ 4 MG/2 ML VIAL IV PUSH ×2 (12:55→17:53)
[2021-12-29 13:04] LABS: Lactic Acid Reflex 2.3 mmol/L (0.7-2.0)
[2021-12-29 13:34] LABS: Glucose Point of Care 249 mg/dl (65-105)
[2021-12-29 13:37] LABS: Alanine Aminotransferase 51 U/L (6-50); Albumin Level 3.5 g/dL (3.5-5.1); Alkaline Phosphatase 210 U/L (38-126); Anion Gap 17 mmol/L (8-16); Aspartate Amino Transferase 40 U/L (17-59); Bilirubin,Total 0.7 mg/dL (0.2-1.3); Blood Urea Nitrogen 56 mg/dL (9-20); Calcium 8.5 mg/dL (8.4-10.2); Carbon Dioxide 19 mmol/L (22-30); Chloride 95 mmol/L (98-107); Estimated CRCL calculation 59 ml/min; Estimated Glomerular Filt Rate 35; Glucose 274 mg/dL (65-110); Lipase 72 U/L (23-300); Potassium 3.9 mmol/L (3.4-5.0); Sodium 131 mmol/L (137-145)
[2021-12-29 13:44] LABS: NT Pro B Type Natriuretic Pept 25000 pg/mL (5-100)
[2021-12-29] MEDS: SODIUM CHLORIDE 0.9% IV 1,000 ML 999 ML IV CONT (14:00)
--- NOTE | 2021-12-29 14:18 | PC.NURSE ---
Pt in XXT
[2021-12-29 15:04] LABS: Appearance Urine Slightly Cloudy (Clear); Bilirubin Urine 1+ (Negative); Blood Urine 2+ (Negative); Color Urine Yellow (Yellow); Glucose Urine UA 3+ mg/dL (Negative); Ketones Urine Trace mg/dL (Negative); Leukocyte Esterase Ur Trace LEU/UL (Negative); Nitrate Urine Negative (Negative); Protein Urine 1+ mg/dL (Negative); Urobilinogen Urine 0.2 mg/dL (<2.0)
[2021-12-29 15:12] LABS: Bacteria Urine Trace /hpf; Mucus Urine Rare /lpf; RBC Urine 21-50 /hpf (0-2); Squamous Epithelial Cell Urine Rare /hpf (Few); WBC Urine 21-30 /hpf
[2021-12-29 15:18] LABS: Add Urine Microscopic? YES
[2021-12-29 15:42] LABS: Reflex Lactic Acid Yes or No Add Lactic
--- NOTE | 2021-12-29 15:45 | ED.WEAKNESS ---
HPI - Weakness General Chief complaint: Weakness Stated complaint: increased weakness, sob with new o2 requirement Time Seen by Provider: 12/29/21 11:57 History of Present Illness HPI Narrative: Patient is a 56-year-old male who presents ER with weakness. Recently discharged from hospital and over the last 4 days has become increasingly more weak at home. He becomes incredibly fatigued with any sort of exertion and fell down to his knees at home. Reports she has had some mild cough for couple days. He also reports last 2 days he developed significantly burning urine. Denies fevers or chills or sweats. No chest pain or chest pressure. No loss of consciousness. Patient had a complex stay with Enterococcus sepsis. He has been taking ampicillin. Patient is also reported increasingly difficult to control blood sugars at home. Reports he has been drinking plenty of water but has had poor appetite. Related Data Home Medications Medication Instructions Recorded Confirmed amlodipine 5 mg tablet (Norvasc) 5 mg PO DAILY 12/07/21 12/29/21 bimatoprost 0.01 % eye drops 1 drp EACH EYE HS 12/07/21 12/29/21 (Lumigan) insulin regular hum U-500 conc 500 200 unit subcut QAM 12/07/21 12/29/21 unit/mL(3 mL) subcut pen (Humulin R U-500 (Conc) Insulin Kwikpen) losartan 100 mg tablet (Cozaar) 100 mg PO DAILY 12/07/21 12/29/21 semaglutide 14 mg tablet (Rybelsus) 14 mg PO DAILY 12/07/21 12/29/21 simvastatin 40 mg tablet 40 mg PO HS 12/07/21 12/29/21 empagliflozin 12.5 mg-metformin ER 1 tablet PO BID 12/18/21 12/29/21 1,000 mg tablet,extended rel 24 hr (Synjardy XR) Allergies Allergy/AdvReac Type Severity Reaction Status Date / Time iodine Allergy Unknown Eye Verified 12/29/21 12:02 swelling Review of Systems Review of Systems: All systems reviewed & are unremarkable except as noted in HPI and below Constitutional: Constitutional: Denies chills, Reports fatigue, Denies fever(s) and Reports weakness ENT: Denies nasal congestion and Denies sore throat Cardiovascular: Cardiovascular: Denies chest pain, Denies rapid heart rate and Denies radiating jaw, neck or arm pain Respiratory: Respiratory: Denies chest congestion, Reports cough and Denies dyspnea Gastrointestinal: Gastrointestinal: Denies abdominal pain, Denies diarrhea, Denies nausea and Denies vomiting Genitourinary: Genitourinary: Denies oliguria, Reports dysuria and Reports urinary frequency Neurologic: Denies syncope, Denies headache(s) and Denies focal weakness [facility] Past Medical History Medical History (Updated 12/29/21 @ 22:37 by Andres Orr MD) Cirrhosis of liver Glaucoma History of kidney stones Hypertension Kidney stones Pyelonephritis Type 2 diabetes mellitus Surgical History Surgical History (Updated 12/29/21 @ 22:37 by Andres Orr MD) History of cholecystectomy History of cystoscopy History of tonsillectomy History of ureter stent Family History Family History Other Asthma Family history of malignant neoplasm Hypertension Social History Social History Social History: Surrogate medical decision maker: Gloria Jaffe, spouse. Code status: Full code. Smoking status: Never smoker Second hand tobacco smoke exposure: No Alcohol intake: current Drinks per week: 1 Substance use: never Substance use type: does not use Additional living arrangements comments: Lives with in [place]. Additional occupation/education comments: [employer]. Spiritual care concerns: No Exam Narrative: GENERAL: Well-appearing, obese, and in no acute distress. HEAD: Normocephalic, atraumatic. EYES: PERRL and EOMI. ENT: Mucous membranes moist. CHEST: Clear to auscultation. No respiratory distress. HEART: Tachycardic and regular. Normal peripheral pulses. ABDOMEN: Soft, mild tenderness in bilat
[2021-12-29] MEDS: HEPARIN SODIUM 5,000 UNITS/ML VIAL 8500 UNITS IV PUSH ×2 (15:54→22:15)
[2021-12-29] MEDS: HEPARIN SOD/D5W 100 UNITS/ML 25,000 UNITS/250 ML BAG 15 UNITS IV CONT (16:06)
[2021-12-29] MEDS: PERFLUTREN LIPID MICROSPHERES 1.5 ML VIAL DILUTED TO 10 ML TOTAL VOLUME IV PUSH (16:50)
--- NOTE | 2021-12-29 17:27 | IVDEFINITY ---
Prior to administration of IV Definity the patient was educated on the risks and benefits of the imaging enhancing agent including potential adverse side effects. The patient verbalized understanding. Allergies were verified. No exclusion criteria were identified and at least one of the following inclusion criteria were met: 1) physician request, 2) patient technically difficult to image (per the [place] [employer] guidelines of two or more segments not discernable within the apical view), or 3) questionable left ventricular function. ?
--- NOTE | 2021-12-29 18:35 | ADMGEN ---
This patient, Eduardo Jaffe, was admitted to IMU Room 202-01. Patient/family oriented to hospital policies and general routines including ID bracelet, bed and alarms, visiting hours, pain management, procedures, bathroom and other care routines, personal items, smoking policy, room service/diet, and visiting hours. Information on how to activate the Rapid Response Team has been discussed. Patient/Family are encouraged to report perceived risks to care and to ask questions if they do not understand what they are told or what they should do.
--- NOTE | 2021-12-29 18:35 | PM.IMHP ---
H&P: HPI History of Present Illness Date/Time: 12/29/21 18:35 Chief Complaint: Weakness and shortness of breath. Narrative: This is a very pleasant 56-year-old male with history of kidney stones, insulin-dependent diabetes, hypertension, and dyslipidemia who presented to the emergency department via EMS from home for evaluation of weakness and shortness of breath. He is known to myself and the hospitalist service from 2 recent admissions. He was admitted 12/07/2021 through 12/09/2021 with obstructing left ureteral calculus and hydronephrosis for which he underwent cystoscopy with left retrograde pyelogram and left ureteroscopy with holmium laser of renal calculi in UPJ stone as well as left ureteral stent placement. He was discharged with a course of ampicillin which he did complete. He returned to the ER on December 18 with abdominal pain, dysuria, nausea, and vomiting and was found to have evidence of pyelonephritis on CT. He was started on empiric Zosyn and he was discharged with ampicillin on 12/23/2021 after his urine culture came back growing Enterococcus species. He felt pretty good for the 1st couple of days that he was home however on Tuesday evening he was awakened from sleep with pretty significant shortness of breath, weakness, and dizziness. The last couple of days he has been getting winded with day-to-day activities activities such as walking to the bathroom. Today he became so weak while walking to the bathroom that he fell down onto his knees. There was no loss of consciousness or injuries and he was able to get himself up however due to ongoing symptoms he felt it would be best to come to the hospital to be evaluated. On arrival to the ER he was afebrile with stable blood pressures and mild tachypnea and tachycardia. Pertinent labs today include a WBC of 18.1, sodium 131, potassium 3.9, chloride 95, carbon dioxide 19, anion gap 17, BUN 56, creatinine 2.00, glucose 274, lactic acid 2.[address] proBNP 25,000. CT of the abdomen and pelvis showed bilateral nonobstructing nephrolithiasis with left internal ureteral stent in expected position and urine showed 1+ protein, 3+ glucose, 2+ blood, trace leukocyte esterase, 21 to 50 RBC, 21 to 30 WBC, and trace bacteria. V/Q scan showed high probability for pulmonary embolism with likely extensive clot burden in both lungs. Venous Doppler ultrasounds of the lower limbs showed an occlusive thrombus on the left extending from the proximal femoral vein to the posterior tibial/peroneal veins. Troponins ordered in the ER were not done and I cannot see that an EKG was done in the ER either. Unfortunately a STAT echocardiogram could not be done this afternoon. Due to stable vital signs, the patient was admitted to the IMU on a heparin drip for close monitoring. At the time of my evaluation, the patient is resting in bed with an SpO2 in the mid to upper 90s on 4 L nasal cannula. His main complaint is that of nausea and he has had a couple of episodes of emesis. His appetite has been decreased the last couple of days and he has not had good oral intake. He is not having any chest pain or pleuritic pain and he does not feel short of breath while resting in the gurney. He has once again started to have some dysuria with urinating and he has not been urinating as much as usual. He has not noticed any blood in the urine. He has not had any significant abdominal or lower back discomfort. He denies fever and chills but he has had some sweats. He has had some lightheadedness with exertion but he denies syncope and presyncope. He fell to his knees today due to profound weakness though he was able to get himself up as above. He denies focal weakness. No prior history of venous thromboembolism. Review of Systems Review of Systems: Twelve systems were reviewed. No headache or neck ache. No sinus congestion or sore throat. No cough. No dysphagia or concerns for aspiration. He has had lower extremity edema since his recent hospitalizations.
[2021-12-29 18:45] LABS: Glucose Point of Care 306 mg/dl (65-105)
--- NOTE | 2021-12-29 20:12 | ECG_ITS ---
Measurements Intervals [place] Rate: 99 P: 52 MN: 157 QRS: -72 QRSD: 114 T: 129 QT: 399 QTc: 513 Interpretive Statements SINUS RHYTHM LEFT AXIS DEVIATION NONSPECIFIC INTRAVENTRICULAR CONDUCTION DELAY DIFFUSE ST ABNORMALITY CONSIDER CONSIDER MYOCARDIAL ISCHEMIA LOW QRS VOLTAGE IN PRECORDIAL LEADS ABNORMAL ECG NO PREVIOUS ECG AVAILABLE FOR COMPARISON Electronically Signed On 12-30-2021 15:59:53 CDT by Shalom Cullen M.D.
[2021-12-29 20:46] LABS: Troponin I 0.833 ng/mL (0.000-0.034)
--- NOTE | 2021-12-29 20:46 | PC.NURSE ---
Susy MONROE notified of current EKG and troponin. Awaiting further orders, Okay to give Phenergan.
[2021-12-29] MEDS: PROMETHAZINE HCL 25 MG/ML AMPUL 12.5 MG IV PUSH (20:49)
[2021-12-29] MEDS: HYDROcodone/acetaminophen (*CRX) 5-325 MG TABLET 1 TAB PO (20:49)
[2021-12-29] MEDS: SODIUM CHLORIDE 0.9% IV 1,000 ML 100 ML IV CONT (20:49)
--- NOTE | 2021-12-29 21:15 | ECG_ITS ---
Measurements Intervals [place] Rate: 102 P: 42 ME: 154 QRS: -69 QRSD: 115 T: 129 QT: 392 QTc: 511 Interpretive Statements SINUS TACHYCARDIA POSSIBLE LEFT ATRIAL ENLARGEMENT LEFT AXIS DEVIATION INCOMPLETE RIGHT BUNDLE BRANCH BLOCK DIFFUSE ST ABNORMALITY CONSIDER MYOCARDIAL ISCHEMIA ABNORMAL ECG COMPARED TO ECG 12/29/2021 19:33:32 SINUS TACHYCARDIA NOW PRESENT INCOMPLETE RIGHT BUNDLE-BRANCH BLOCK NOW PRESENT Electronically Signed On 12-30-2021 16:01:31 CDT by Shalom Cullen M.D.
--- NOTE | 2021-12-29 21:50 | PC.NURSE ---
Dr. Sloan in room to evaluate patient and repeat EKG shown to Dr. Sloan. Awaiting further orders at this time. Awaiting lab results.
--- NOTE | 2021-12-29 22:01 | PC.NURSE ---
Patient placed on 4LNC and continuous pulse ox. 98% currently.
[2021-12-29 22:05] LABS: Anion Gap 13 mmol/L (8-16); Blood Urea Nitrogen 60 mg/dL (9-20); Calcium 7.8 mg/dL (8.4-10.2); Carbon Dioxide 22 mmol/L (22-30); Chloride 95 mmol/L (98-107); Estimated CRCL calculation 61 ml/min; Estimated Glomerular Filt Rate 37; Glucose 291 mg/dL (65-110); Magnesium 2.3 mg/dL (1.6-2.3); Sodium 130 mmol/L (137-145)
[2021-12-29 22:08] LABS: Partial Thromboplastin Time 42.9 SECONDS (22.3-36.8)
[2021-12-29 22:32] LABS: Troponin I 0.823 ng/mL (0.000-0.034)
--- NOTE | 2021-12-29 23:02 | PC.NURSE ---
Spoke with Dr. Sloan and Susy MONROE, no intervention per cardiology. Continue current treatment plan. Susy MONROE notified of patients current blood sugar and unable to void at this time. Awaiting further orders.
[2021-12-30] VITALS: PULSE 100
[2021-12-30] MEDS: INSULIN ASPART (*BKC) 100 UNITS/ML SUB-Q (00:59)
[2021-12-30] MEDS: MORPHINE SULFATE (*CRX) 4 MG/ML INJ IV PUSH (00:59)
[2021-12-30 02:00] VITALS: PULSE 95
--- NOTE | 2022-02-14 01:36 | PM.TDS ---
Transfer Discharge Sum: Prov Provider Date of admission: 12/29/21 16:18 Admitting clinician: Juana Posada MD Consults: 12/29/21 16:19 Consult to Physician Routine Consulting Provider: Shalom Cullen Reason for consultation: heart failure, pulmonary embolism Attending physician on discharge: Juana Posada Discharging clinician: Susy Milligan Anticipated date of transfer: 01/30/22 Receiving physician/facility: [facility]. DS: Admitting Diagnosis Discharge Date 12/30/21 Admitting Diagnosis 1. Bilateral pulmonary embolism with likely extensive clot burden. 2. Hypoxia. 3. Left lower extremity DVT. 4. Elevated troponin. 5. Acute kidney failure. 6. Abnormal chest x-ray. 7. Recent urinary tract infection. 8. Type 2 diabetes mellitus with hyperglycemia. 9. Cirrhosis of the liver. 10. Nephrolithiasis. DS: Discharge Diagnosis Discharge Diagnosis (1) Bilateral pulmonary embolism: Code(s): I26.99 - Other pulmonary embolism without acute cor pulmonale Status: Acute (2) Hypoxia: Code(s): R09.02 - Hypoxemia Status: Acute (3) Left leg DVT: Code(s): I82.402 - Acute embolism and thrombosis of unspecified deep veins of left lower extremity Status: Acute (4) Elevated troponin: Code(s): R77.8 - Other specified abnormalities of plasma proteins Status: Acute (5) Acute kidney failure: Code(s): N17.9 - Acute kidney failure, unspecified Status: Acute (6) Abnormal chest x-ray: Code(s): R93.89 - Abnormal findings on diagnostic imaging of other specified body structures Status: Acute (7) Recent urinary tract infection: Code(s): Z87.440 - Personal history of urinary (tract) infections Status: Acute (8) Type 2 diabetes mellitus with hyperglycemia: Code(s): E11.65 - Type 2 diabetes mellitus with hyperglycemia Status: Acute (9) Cirrhosis of liver: Code(s): K74.60 - Unspecified cirrhosis of liver Status: Acute (10) Nephrolithiasis: Code(s): N20.0 - Calculus of kidney Status: Acute Transfer Discharge Sum: Med Medications Active and Home Medications: Home Medications ondansetron 4 mg disintegrating tablet 4 mg PO Q8H PRN nausea and vomiting #20 tabs 07/30/22 [Rx Confirmed 12/29/21] amlodipine 5 mg tablet (Norvasc) 5 mg PO DAILY 12/07/21 [History Confirmed 12/29/21] bimatoprost 0.01 % eye drops (Lumigan) 1 drp EACH EYE HS 12/07/21 [History Confirmed 12/29/21] insulin regular hum U-500 conc 500 unit/mL(3 mL) subcut pen (Humulin R U-500 (Conc) Insulin Kwikpen) 200 unit subcut QAM 12/07/21 [History Confirmed 12/29/21] losartan 100 mg tablet (Cozaar) 100 mg PO DAILY 12/07/21 [History Confirmed 12/29/21] semaglutide 14 mg tablet (Rybelsus) 14 mg PO DAILY 12/07/21 [History Confirmed 12/29/21] simvastatin 40 mg tablet 40 mg PO HS 12/07/21 [History Confirmed 12/29/21] empagliflozin 12.5 mg-metformin ER 1,000 mg tablet,extended rel 24 hr (Synjardy XR) 1 tablet PO BID 12/18/21 [History Confirmed 12/29/21] ampicillin 500 mg capsule 500 mg PO Q6H 10 days #40 caps 12/23/21 [Rx Confirmed 12/29/21] tramadol 50 mg tablet 50 mg PO Q6H PRN pain #20 tabs 12/23/21 [Rx Confirmed 12/29/21] Transfer Discharge Sum: Hosp Hospital Course Hospital course: The patient presented to the emergency department on 12/29/2021 with complaints of weakness and shortness of breath for several days. On arrival to the emergency department he was afebrile with stable blood pressures though he was mildly tachypneic and tachycardic. Pertinent labs on arrival included a WBC of 18.1, sodium 131, potassium 3.9,chloride 95, carbon dioxide 19, anion gap 17, BUN 56, creatinine 2.00, glucose 274, lactic acid 2.[address] 25,000. CT of the abdomen and pelvis showed bilateral nonobstructing nephrolithiasis with left internal ureteral stent in expected position and urine showed 1+ protein, 3+ glucose, 2+ blood, trace leukocyte esteras
== END 2021-12-30 02:46 | disposition short-term general hospital (02) ==
LOC: ANHED 16:21 → ANHIMU 17:44
PROVIDERS: Physician Assistant; Preventive Medicine Aerospace Medicine; Admitting Provider Family Medicine; Emergency Provider Emergency Medicine; Visit Provider Family Medicine
DX: I26.99 Other pulmonary embolism without acute cor pulmonale (principal); R09.02 Hypoxemia; E11.65 Type 2 diabetes mellitus with hyperglycemia; I82.412 Acute embolism and thrombosis of left femoral vein; I82.442 Acute embolism and thrombosis of left tibial vein; I82.452 Acute embolism and thrombosis of left peroneal vein; I10 Essential (primary) hypertension; Z79.4 Long term (current) use of insulin; K74.60 Unspecified cirrhosis of liver; H40.9 Unspecified glaucoma; E78.5 Hyperlipidemia, unspecified; R77.8 Other specified abnormalities of plasma proteins; N17.9 Acute kidney failure, unspecified; R91.8 Other nonspecific abnormal finding of lung field; N20.0 Calculus of kidney; N39.0 Urinary tract infection, site not specified
CPT/HCPCS: 36415; 51701; 71045; 74176; 78580; 80048; 80053; 81001; 82948; 83605; 83690; 83735; 83880; 84484; 85025; 85730; 87040; 87086; 93005; 93970; 96361; 96365; 96366; 96375; 96376; 99291; A9270; A9540; C8929; G0378; J1644; J1815; J2270; J2405; J2550; J3370; J7030; Q9957